=== PATIENT | male | born 1970 | race Caucasian/White ===

== ENCOUNTER → 2016-11-03 | Outpatient (CLI) | payer BC ==
--- NOTE | 2016-11-03 11:58 | US ---
EXAMINATION TYPE: US venous doppler duplex LE BI DATE OF EXAM: 11/03/2016 11:31 AM COMPARISON: NONE CLINICAL HISTORY: 46-year-old male with pain and swelling I82.403. Bilat. leg pain and swelling, no p revious history of. DVT. SIDE PERFORMED: bilateral TECHNIQUE: The bilateral lower extremity deep venous system is examined utilizing real time linear a rray sonography with graded compression, Doppler and color-flow sonography. Findings: VESSELS IMAGED: External Iliac Vein (EIV) Common Femoral Vein Deep Femoral Vein Femoral Vein Popliteal Vein Proximal Calf Veins There is normal flow, compressibility and vascular waveforms bilaterally. Right Leg: Negative for DVT Left Leg: Negative for DVT IMPRESSION: No evidence for DVT within the bilateral lower extremities imaged from the groin to the upper calves.
--- NOTE | 2016-11-03 12:27 | XR ---
EXAMINATION TYPE: XR chest 2V DATE OF EXAM: 11/03/2016 12:02 PM COMPARISON: NONE HISTORY: Cough and shortness of breath, history kidney transplant TECHNIQUE: Frontal and lateral views of the chest are obtained. FINDINGS: There is no focal air space opacity, pleural effusion, or pneumothorax seen. The cardiac silhouette size is within normal limits. There is bronchial wall thickening. The patient is rotated. The osseous structures are intact. IMPRESSION: Correlate for reactive airways disease, bronchitis, follow-up as indicated.
== END ==
LOC: RADUSWWP 10:57
PROVIDERS: ATTEND Family Medicine
DX: R06.00 Dyspnea, unspecified (principal); R05 Cough; Z94.0 Kidney transplant status; I82.403 Acute embolism and thrombosis of unspecified deep veins of lower extremity, bilateral; M79.606 Pain in leg, unspecified
CPT/HCPCS: 71020; 93005; 93970

== ENCOUNTER → 2016-12-16 | Outpatient (CLI) | payer BC, MEDICARE ==
--- NOTE | 2016-12-16 14:37 | CT ---
EXAMINATION TYPE: CT abdomen pelvis wo con DATE OF EXAM: 12/16/2016 2:28 PM COMPARISON: NONE HISTORY: Polycystic Kidney Disease CT DLP: 1234.80 mGycm FINDINGS: LUNG BASES: No evidence for nodule. No evidence for infiltrate. LIVER/GB: The gallbladder is unremarkable. No space-occupying hepatic lesion. PANCREAS: No pancreatic mass identified. No inflammatory process seen. SPLEEN: No evidence for splenomegaly. No intrasplenic lesions seen. ADRENALS: No adrenal nodules identified. No evidence for thickening. KIDNEYS: The kidneys are markedly enlarged bilaterally. Innumerable cysts are seen within both kidney s. Some of these cysts demonstrate high mucinous component and/or hemorrhagic component. See evidence for nephrolithiasis or hydronephrosis. There is a transplanted right pelvic kidney which appears to demonstrate normal morphology. No hydronephrosis of the transplanted kidney or inflammato ry changes seen. BOWEL: Appendix has a normal appearance. No evidence of bowel obstruction. No inflam matory process. Lymph nodes: No evidence for adenopathy greater than 1 cm. Abdominal aorta: Atheromatous changes seen. No evidence for aneurysm. Genital organs: No significant abnormality. Other: No significant abnormality. IMPRESSION: 1. FINDINGS COMPATIBLE WITH AUTOSOMAL DOMINANT POLYCYSTIC KIDNEY DISEASE. 2. TRANSPLANTED KIDNEY HAS A NORMAL MORPHOLOGY.
== END ==
LOC: RADCTMAIN 14:05
PROVIDERS: ATTEND Urology
DX: Q61.2 Polycystic kidney, adult type (principal); Z94.0 Kidney transplant status
CPT/HCPCS: 74176

== ENCOUNTER → 2017-07-14 | Outpatient (CLI) | payer BC, MEDICARE ==
--- NOTE | 2017-07-14 22:25 | CONS ---
CONSULTATION This patient is a 47-year-old gentleman who has been evaluated in the sleep center for possible obstructive sleep apnea-hypopnea syndrome. HISTORY OF PRESENT ILLNESS/SLEEP-WAKE EVALUATION: Patient's usual sleep schedule is from around 9 or 10 p.m. until 6 or 7 a.m. Sometimes he has problem with falling asleep. No TV in bedroom. He sleeps only on the stomach position or side. If he is on his back, he snores and has episodes of stopped breathing during sleep. He wakes up from sleep about 3 times with 1 episode of nocturia. He has a positive history of restless legs and twitching of his legs during the night. In the morning he wakes up tired, has problem with memory. [place] Sleepiness Scale is 8. The patient had a sleep study in 2008. At that time the sleep study was negative. Patient's weight at that time was 240 pounds. His weight has increased since that time by 44 pounds. PAST MEDICAL HISTORY: 1. Polycystic kidney disease, treated with kidney transplant, and after that his own kidneys were removed. 2. Hypothyroidism. 3. Hyperlipidemia. 4. Allergies. 5. Intracranial hypertension. PAST SURGICAL HISTORY: 1. Kidney transplant. 2. Lipoma removed. 3. His own kidney removed. MEDICATIONS: 1. Tacrolimus. 2. CellCept. 3. Prednisone. 4. Synthroid. 5. Zantac. 6. Zoloft. 7. Claritin. 8. Rogaine. SOCIAL HISTORY: Negative for smoking. Alcohol consumption occasional. FAMILY HISTORY: Hypertension, heart problems, stroke, arthritis, narcolepsy, liver problems, diabetes. REVIEW OF SYSTEMS: Awakenings from sleep. PHYSICAL EXAMINATION: Pleasant 47-year-old gentleman without distress. VITAL SIGNS: BP 134/90, HR 84, RR 16, height 5 feet 11-1/4 inches, weight 284.2, BMI 39.3. Neck 19 inches in circumference. Temperature 98.5, oxygen saturation at room air 97%. HEENT: PERRLA, EOMI. Evaluation of oropharynx showed tongue protrudes midline; moderately low, close to normal position of soft palate. Thin, long uvula. NECK: Supple. No JVD. Thyroid is not palpable. Wide neck. LUNGS: Clear to percussion and to auscultation. Good air exchange. No wheezing or rhonchi. HEART: S1, S2. ABDOMEN: Obese. EXTREMITIES: No clubbing or cyanosis. GAMING DIRECTOR: Awake, alert and oriented x3. Cranial nerves 2 to 7 intact. There is no fasciculation or atrophy noted. No focal deficits observed. IMPRESSION: 1. Snoring, possible witnessed episodes of stopped breathing during sleep, especially in the back position, awakenings from sleep, wide neck, obesity; obstructive sleep apnea-hypopnea syndrome. 2. Obesity; body mass index 39.3. 3. History of restless legs syndrome. 4. Periodic limb movements. 5. Polycystic kidney disease, status post kidney transplant, and his own kidneys have been removed. 6. Hypothyroidism. 7. Hyperlipidemia. 8. Allergies. 9. History of intracranial hypertension. 10.Lipoma removed from left shoulder area. PLAN: 1. Polysomnography for evaluation of patient's breathing during sleep. 2. CPAP/BiPAP titration if sleep study confirms obstructive sleep apnea-hypopnea syndrome. 3. Preferable position during sleep on the side. 4. No driving if patient feels any sleepiness. Patient is aware of civil and criminal liability for unsafe driving. 5. I will see patient for follow-up visit to explain results of testing and following plan. Thank you very much for referring this patient for consultation. Sincerely, Theodore Son MD, PhD, FAASM Diplomat of [place] [employer] [place] [employer] [facility] [facility] [place] MMJOSE / DANY: [id number] /
== END | disposition home or self-care (01) ==
LOC: SLEEP 15:32
PROVIDERS: ATTEND Internal Medicine
DX: G47.33 Obstructive sleep apnea (adult) (pediatric) (principal); G47.61 Periodic limb movement disorder; E03.9 Hypothyroidism, unspecified; E78.5 Hyperlipidemia, unspecified; G93.2 Benign intracranial hypertension
CPT/HCPCS: 99211

== ENCOUNTER → 2018-09-15 | Outpatient (CLI) | payer BC, MEDICARE ==
[2018-09-19 01:02] LABS: Beef IgG 12.3 mcg/mL (< 2.0); Chicken Meat IgG <2.0 mcg/mL (< 2.0); Corn IgG 2.3 mcg/mL (< 2.0); Cow's Milk IgG 66.3 mcg/mL (< 2.0); Peanut IgG <2.0 mcg/mL (< 2.0); Pork IgG 4.4 mcg/mL (< 2.0); Potato IgG <2.0 mcg/mL (< 2.0); Soybean IgG <2.0 mcg/mL (< 2.0); Tomato IgG <2.0 mcg/mL (< 2.0); Wheat IgG 2.3 mcg/mL (< 2.0)
== END | disposition home or self-care (01) ==
LOC: LABWHC1 11:49
PROVIDERS: ATTEND Otolaryngology
DX: J30.89 Other allergic rhinitis (principal)
CPT/HCPCS: 36415; 86001

== ENCOUNTER → 2019-10-05 | Outpatient (CLI) | payer BC ==
--- NOTE | 2019-10-06 08:03 | CT ---
EXAMINATION TYPE: CT soft tissue neck wo con DATE OF EXAM: 10/05/2019 COMPARISON: None HISTORY: Sore throat and lump. BB placed on region of interest. CT DLP: [address] of the neck was performed from the skull base through the lung apices. BB is placed ove r the site of clinical concern over the left neck at the level of the left parotid. AIRWAY: The supraglottic, glottic, and subglottic portions of the airway appear patent and free of mass. SALIVARY GLANDS: The submandibular and parotid glands are free of mass or inflammatory process. THYROID GLAND: No nodules or masses seen. LYMPH NODES: No adenopathy seen greater than 1cm. LUNG APICES: No nodule or mass is seen. OTHER: Vascular structures are patent. No significant degenerative change of the cervical spine. N o abscess seen. Mild mucosal thickening left maxillary sinus. IMPRESSION: No distinct abnormality at the site of clinical concern.
== END | disposition home or self-care (01) ==
LOC: RADCTMAIN 16:57
PROVIDERS: ATTEND Otolaryngology
DX: J02.9 Acute pharyngitis, unspecified (principal)
CPT/HCPCS: 70490

== ENCOUNTER → 2021-01-31 | Outpatient (CLI) | payer BC ==
--- NOTE | 2021-02-01 06:44 | US ---
EXAMINATION TYPE: US thyroid st tissue head/neck DATE OF EXAM: 01/31/2021 COMPARISON: CT neck October 05, 2019 CLINICAL HISTORY: R22.1 Left Neck Mass. Posterior left neck palpable x long time per patient. Soft a t touch. Patient states he thinks it has increased in size. Patient states he has been having some neck pain. Area of concern scanned. Hypoechoic nonvascular lesion seen at area of concern= 2.6 x 2.0 x 0.8 cm. Contralateral images taken. As above. Oval hypoechoic avascular structure at the site of palpable abnormality in the deep subcuta neous tissue strongly favors benign etiology. No suspicious lesion identified on neck CT 16 months ea rlier. If lesion continues to enlarge or become focally painful further investigation with repeat con trast-enhanced CT would be warranted. IMPRESSION: As above.
== END | disposition home or self-care (01) ==
LOC: RADUSWWP 16:21
PROVIDERS: ATTEND Family Medicine
DX: R22.1 Localized swelling, mass and lump, neck (principal)
CPT/HCPCS: 76536

== ENCOUNTER → 2021-11-12 | Outpatient (CLI) | payer BC ==
--- NOTE | 2021-11-12 11:15 | MR ---
EXAMINATION TYPE: MR brain/orbits wo/w con, MR venography head wo con DATE OF EXAM: 11/12/2021 COMPARISON: None HISTORY: Papilledema TECHNIQUE: Multiplanar, multisequence images of the brain and brainstem is performed without and with IV contras t, utilizing 12 mL intravenous Gadavist . [id number] imaging obtained through the brain with thre e-dimensional reconstructions performed on an alternate workstation and reviewed. FINDINGS: Diffusion weighted images demonstrate no evidence of a recent infarct or other diffusion ab normality. There is no extra-axial fluid collection. There is some minimal periventricular hyperint ensity present on inversion recovery T2-weighted sequences of questionable clinical significance, pun ctate focus present in the right frontal lobe on axial image 17 measures 5 mm. The ventricular system and cisternal spaces are normal in size and appearance. The brain volume is age appropriate. There is fluid signal present along the optic nerves bilaterally, correlate for papilledema. No evide nt intraorbital mass. Extraocular musculature shows a symmetric appearance. No abnormal enhancement a long the optic nerves. Lenses within the globes show an atypical appearance Midline structures demonstrate normal morphology with a marginally the sella. The craniocervical quiana ction appears within normal limits. Post contrast images demonstrate no abnormal enhancement, probab le developmental venous malformation noted along the right frontal lobe. The dural venous sinuses alejandra ear patent. The visualized sinuses are remarkable for mucosal disease within the ethmoid air cells, f rontal sinus, lobular soft tissue in the maxillary antrum on the left may represent a mucous retentio n cyst and the globes are intact. T2 hyperintensity is present within the temporal bone on the right, mastoid air cells suggesting inflammatory change. The sagittal sinus, cerebral veins, transverse sinus, sigmoid sinus are patent. IMPRESSION: Fluid signal is present along the optic nerves consistent with patient's history correlat e. Mild sinus disease, inflammatory change present within the temporal bone on the right, mastoid air cells. Nonspecific white matter demyelination of questionable clinical significance. No evident cere bral venous thrombosis.
== END | disposition home or self-care (01) ==
LOC: RADMRIMAIN 09:00
PROVIDERS: ATTEND Ophthalmology
DX: H47.10 Unspecified papilledema (principal); J32.9 Chronic sinusitis, unspecified; H70.90 Unspecified mastoiditis, unspecified ear
CPT/HCPCS: 70544; 70543; 70553; A9585

== ENCOUNTER 2021-11-27 09:45 | Day surgery (SDC) | payer BC ==
[2021-11-26 10:15] VITALS: BMI 34.2
[~2021-11-27 09:45] MED LIST: LACTATED RINGERS 1,000 ML IV SCH
[2021-11-27 10:33] VITALS: RESP 16; TEMP 98
[2021-11-27 10:37] LABS: Glucose,Whole Blood 127 mg/dL (75-99)
--- NOTE | 2021-11-27 11:03 | P.PCN ---
Date of Procedure: 11/27/21 Description of Procedure: Procedure: 1. Diagnostic Lumbar puncture for CSF collection PREOPERATIVE DIAGNOSIS: Papilledema POSTOPERATIVE DIAGNOSIS: Papilledema SURGEON: Tracy Edwards ANESTHESIA: Local with 1% lidocaine, and IV sedation : None EBL: None. 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 Consulted for lumbar puncture for CSF collection send it for analysis. PROCEDURE DESCRIPTION: The patient was seen and identified. Risks, benefits, complications, and alternatives were discussed with the patient. The patient agreed to proceed with the procedure and signed the consent, and vital signs were stable. Patient was taken to the procedure area, and time out was completed. The patient was placed in left lateral position on procedure. . The lumbosacral area was prepped and draped in the usual sterile fashion. Critical pause was taken. Vital signs were closely monitored during the procedure. Posterior superior iliac crest landmarks was identified . The midline lumbar space also identified. Approximately at the level of L4-L5 interspinous space, skin and deeper tissues were localized with 5 mL of 1% lidocaine. Using a 22 gauge 3.5 spinal needle entered into subarachnoid space, with 1 attempt. Clear CSF came out of the spinal needle. 3 mL of CSF fluid collected in each tube 4. Needle was withdrawn intact, skin was cleansed, and bandages were applied. Opening CSF pressure: 29 cm Closing CSF pressure: 14.5 cm COMPLICATIONS: None. DISPOSITION / PLANS: The patient was placed in a supine position and transferred to the recovery area in a stable condition for observation. Patient was discharged from the recovery room after meeting discharge criteria. Home discharge instructions given to the patient by the staff. The patient was reexamined prior to discharge.
[2021-11-27 11:29] VITALS: BP 120/80; PULSE 65
[2021-11-27 16:15] LABS: Glucose,CSF 93 mg/dL (40-70); Total Protein,CSF 86 mg/dL (12-60)
[2021-11-27 16:30] LABS: Appearance,CSF Clear; CSF Tube Number 4; CSF Tube Volume 3; Nucleated Cells, CSF 3 u/L (0-5); Red Blood Cell,CSF 23 u/L (0-10)
[2021-11-27 16:36] LABS: Red Blood Cell, CSF Crenated 9 %; Red Blood Cell, CSF Fresh 91 %
== END 2021-11-27 11:55 | disposition home or self-care (01) ==
LOC: ORPAIN 09:45
DX: H47.10 Unspecified papilledema (principal)
CPT/HCPCS: 62270; 82945; 84157; 88108; 89050

== ENCOUNTER → 2022-11-04 | Outpatient (CLI) | payer BC ==
--- NOTE | 2022-11-04 11:07 | XR ---
EXAMINATION TYPE: XR chest 2V DATE OF EXAM: 11/04/2022 COMPARISON: Chest x-ray November 03, 2016 HISTORY: Shortness of breath on exertion. Tachycardia. TECHNIQUE: Frontal and lateral views of the chest are obtained. FINDINGS: There is no focal air space opacity, pleural effusion, or pneumothorax seen. The cardiac silhouette size is stable and within normal limits. Slightly prominent aortic knob is redemonstrated. The osseous structures are intact. IMPRESSION: No acute cardiopulmonary process.
== END | disposition home or self-care (01) ==
LOC: RADXRMAIN 10:32
PROVIDERS: ATTEND Internal Medicine Nephrology
DX: J81.0 Acute pulmonary edema (principal); I50.9 Heart failure, unspecified; E83.42 Hypomagnesemia; R25.2 Cramp and spasm; Z94.0 Kidney transplant status
CPT/HCPCS: 71046; 83735

== ENCOUNTER → 2022-11-27 | Outpatient (CLI) | payer BC ==
--- NOTE | 2022-11-28 10:09 | CA ---
Transthoracic Echo Report Name: Luke Lopez Age: 52 Gender: M : 1970 Exam Date: 11/27/2022 13:02 Exam Location: [facility] Ht (in): 73 Wt (lb): 235 Ordering Physician: Levar Mena MD Attending/Referring Phys: Business Analytics Director Mirian Quintanilla RDCS Procedure CPT: Indications: i50.9 Cardiac Hx: Technical Quality: Fair Contrast 1: Total Dose (mL): Contrast 2: Total Dose (mL): MEASUREMENTS (Male / Female) Normal Values 2D ECHO LV Diastolic Diameter PLAX 3.9 cm 4.2 - 5.9 / 3.9 - 5.3 cm LV Systolic Diameter PLAX 2.6 cm IVS Diastolic Thickness 1.5 cm 0.6 - 1.0 / 0.6 - 0.9 cm LVPW Diastolic Thickness 1.5 cm 0.6 - 1.0 / 0.6 - 0.9 cm LV Relative Wall Thickness 0.8 RV Internal Dim ED PLAX 4.6 cm LA Volume 114.2 cm??? 18 - 58 / 22 - 52 cm??? M-MODE Aortic Root Diameter MM 4.3 cm LA Systolic Diameter MM 4.0 cm LA Ao Ratio MM 0.9 AV Cusp Separation MM 2.8 cm DOPPLER AV Peak Velocity 132.3 cm/s AV Peak Gradient 7.0 mmHg AV Mean Velocity 96.7 cm/s AV Mean Gradient 4.0 mmHg AV Velocity Time Integral 27.2 cm LVOT Peak Velocity 123.6 cm/s LVOT Peak Gradient 6.1 mmHg LVOT Velocity Time Integral 29.0 cm MV Area PHT 2.8 cm??? Mitral E Point Velocity 103.5 cm/s Mitral A Point Velocity 76.7 cm/s Mitral E to A Ratio 1.4 MV Deceleration Time 270.8 ms MV E' Velocity 10.5 cm/s Mitral E to MV E' Ratio 9.9 TR Peak Velocity 271.1 cm/s TR Peak Gradient 29.4 mmHg Right Ventricular Systolic Press 33.3 mmHg FINDINGS Left Ventricle Moderately increased left ventricular wall thickness. Left ventricular cavity size normal. Normal left ventricular systolic function with no obvious regional wall motion abnormalities. Left ventricular ejection fraction is estimated at 55-60 %. Right Ventricle Moderate right ventricular dilatation. Right ventricular systolic pressure within normal limits. Right Atrium Normal right atrial size. Left Atrium Severely increased left atrial volume. Mildly increased left atrial area. Mitral Valve Structurally normal mitral valve. Mitral annular calcification. Moderate mitral regurgitation. Aortic Valve No aortic valve stenosis or regurgitation. Tricuspid Valve Structurally normal tricuspid valve. Mild tricuspid regurgitation. Pulmonic Valve Structurally normal pulmonic valve. Pericardium No pericardial effusion. Aorta Normal size aortic root and proximal ascending aorta. CONCLUSIONS Moderate increased left ventricular wall thickness Left ventricular ejection fraction 55-60% Moderate left atrial dilation Moderate mitral regurgitation Mild tricuspid regurgitation Previewed by: Dr. Myron Saldana DO (Electronically Signed) Final Date: 28 November 2022 10:08
== END | disposition home or self-care (01) ==
LOC: RADECHMAIN 12:56
PROVIDERS: ATTEND Internal Medicine Nephrology
DX: I08.1 Rheumatic disorders of both mitral and tricuspid valves (principal); I50.9 Heart failure, unspecified
CPT/HCPCS: 93306

== ENCOUNTER 2023-10-29 00:32 | Inpatient (IN) | payer BC ==
--- NOTE | 2023-10-29 01:12 | ED ---
Abdominal Pain HPI - General Chief Complaint: Abdominal Pain Stated Complaint: abd pain Time Seen by Provider: 10/29/23 00:39 Source: patient, family, RN notes reviewed, old records reviewed Mode of arrival: ambulatory Limitations: no limitations - History of Present Illness Initial Comments: This is a 53-year-old male to the ER for evaluation abdominal pain severe abdominal pain left-sided abdominal pain. Patient has persistent nausea without vomiting since significant nausea without vomiting with history of diverticulitis and this feels similar. MD Complaint: abdominal pain (Severe abdominal pain left lower quadrant abd ominal pain) -: days(s) Location: LLQ Radiation: LLQ Migration to: LLQ Severity: moderate Severity scale (1-10): 7 Quality: sharp Consistency: constant Improves With: nothing Worsens With: nothing Associated Symptoms: nausea, vomiting, diarrhea, constipation Treatments Prior to Arrival: other - Related Data Home Medications Medication Instructions Recorded Confirmed Atorvastatin [Lipitor] 40 mg PO HS 11/26/21 10/29/23 Azelastine HCl [Astepro] 2 spray NASAL DAILY 11/26/21 10/29/23 Calcium Acetate [Phoslo] 1,334 mg PO TID-W/MEALS 11/26/21 10/29/23 Calcium Carbonate [Tums] 2,000 mg PO QAM 11/26/21 10/29/23 Famotidine [Pepcid] 20 mg PO HS 11/26/21 10/29/23 Fluticasone Propionate [Flonase 2 spray EA NOSTRIL DAILY 11/26/21 10/29/23 Allergy Relief] Folic Acid 0.4 mg PO BID 11/26/21 10/29/23 Hydrocortisone [Cortef] 10 mg PO BID 11/26/21 10/29/23 Hyoscyamine Sulfate [Levsin] 0.125 mg PO TID-W/MEALS 11/26/21 10/29/23 Levothyroxine Sodium [Synthroid] 75 mcg PO QAM 11/26/21 10/29/23 Loperamide HCl [Imodium A-D] 2 mg PO DAILY 11/26/21 10/29/23 Loratadine [Claritin] 10 mg PO DAILY 11/26/21 10/29/23 Magnesium Oxide [Mag-Ox] 400 mg PO QAM 11/26/21 10/29/23 Montelukast Sodium [Singulair] 10 mg PO DAILY 11/26/21 10/29/23 Multivitamins, Thera [Multivitamin 1 tab PO QAM 11/26/21 10/29/23 (formulary)] [place]-3 Fatty Acids/Fish Oil [Fish 1 cap PO BID 11/26/21 10/29/23 Oil 1,000 mg Softgel] Tacrolimus [Prograf] 3 mg PO Q12H 11/26/21 10/29/23 Vitamin E (Dl,Tocopheryl Acet) 400 unit PO QAM 11/26/21 10/29/23 [Vitamin E (400 Iu = 180 mg)] acetaZOLAMIDE [Diamox] 500 mg PO BID 11/26/21 10/29/23 allopurinoL [Zyloprim] 200 mg PO DAILY 11/26/21 10/29/23 calcitrioL 0.25 mcg PO BID 11/26/21 10/29/23 minoxidiL [Rogaine] 1 applic TOPICAL BID 11/26/21 10/29/23 mycophenolate mofetiL [Cellcept] 750 mg PO BID 11/26/21 10/29/23 Midodrine [ProAmatine] 10 mg PO TID 10/29/23 10/29/23 Sertraline [Zoloft] 150 mg PO HS 10/29/23 10/29/23 Allergies Allergy/AdvReac Type Severity Reaction Status Date / Time doxycycline AdvReac Nausea & Verified 10/29/23 07:43 Vomiting & Diarrhea Review of Systems ROS Statement: Those systems with pertinent positive or pertinent negative responses have been documented in the HPI. ROS Other: All systems not noted in ROS Statement are negative. Past Medical History Past Medical History: Chest Pain / Angina, Diabetes Mellitus, Hyperlipidemia, Hypertension, Osteoarthritis (OA), Sleep Apnea/CPAP/BIPAP, Thyroid Disorder Additional Past Medical History / Comment(s): Seasonal Allergies. No treatment needed for Diabetes, just watching levels. Hypertension resolved after kidney transplant. CPAP use. History of Any Multi-Drug Resistant Organisms: None Reported Past Surgical History: Orthopedic Surgery Additional Past Surgical History / Comment(s): Bilateral Neprectomy, right kidney transplant 04/2016, parathyroidectomy, colonoscopy, liopma removed from left posterior shoulder, left knee arthroscopy, lumbar puncture, bilateral optic sheath surgery, bilateral cataracts removed, lipoma removed from left posterior neck. Past Anesthesia/Blood Transfusion Reactions: Motion Sickness, Postoperative N ausea & Vomiting (PONV) Past Psychological History: Anxiety Smoking Status: Never smoker Past Alcohol Use History: Occasional Past Drug Use History: None Reported - Past Family History Mother Family Medical History: No Reported History General Exam Limitations: no limitations General appearance: alert, in no apparent distress, anxious Head exam: Present: atraumatic, normocephalic, normal inspection Eye exam: Present: normal appearance, PERRL, EOMI. Absent: scleral icterus, conjunctival injection, periorbital swelling ENT exam: Present: normal exam, mucous membranes moist Neck exam: Present: normal inspection. Absent: tenderness, meningismus, lymphadenopathy Respiratory exam: Present: normal lung sounds bilaterally. Absent: respiratory distress, wheezes, rales, rhonchi, stridor Cardiovascular Exam: Present: regular rate, normal rhythm, normal heart sounds. Absent: systolic murmur, diastolic murmur, rubs, gallop, clicks GI/Abdominal exam: Present: tenderness, guarding, normal bowel sounds. Absent: distended, rebound, rigid Extremities exam: Present: normal inspection, full ROM, normal capillary refill. Absent: tenderness, pedal edema, joint swelling, calf tenderness Back exam: Present: normal inspection Neurological exam: Present: alert, oriented X3, CN II-XII intact Psychiatric exam: Present: normal affect, normal mood Skin exam: Present: warm, dry, intact, normal color. Absent: rash Course Vital Signs 10/29/23 10/29/23 10/29/23 00:34 03:04 03:56 Temperature 98.2 F Pulse Rate 80 76 89 Respiratory 20 18 18 Rate Blood Pressure 131/81 126/74 105/79 O2 Sat by Pulse 97 99 98 Oximetry 10/29/23 10/29/23 10/29/23 04:57 06:29 08:39 Temperature Pulse Rate 100 100 99 Respiratory 16 18 18 Rate Blood Pressure 114/92 97/57 87/64 O2 Sat by Pulse 94 L 98 97 Oximetry 10/29/23 10/29/23 10/29/23 10:18 12:03 13:00 Temperature 100 F H 100 F H Pulse Rate 86 93 65 Respiratory 20 18 18 Rate Blood Pressure 100/66 102/61 90/59 O2 Sat by Pulse 96 95 95 Oximetry - Reevaluation(s) Reevaluation #1: 10/29/23 01:44 Medical records reviewed Reevaluation #2: 10/29/23 01:44 Patient symptoms are improved Reevaluation #3: 10/29/23 04:04 Patient informed of results and questions answered Reevaluation #4: Was pt. sent in by a medical professional or institution ([facility], STAFFING CONSULTANT, urgent care, hospital, or half-way...) When possible be specific @ -no Did you speak to anyone other than the patient for history (EMS, parent, family, police, friend...)? What history was obtained from this source @ -no Did you review nursing and triage notes (agree or disagree)? Why? @ -agree Are old charts reviewed (outside hosp., previous admission, EMS record, old EKG, old radiological studies, urgent care reports/EKG's, half-way records)? Report findings @ -yes Differential Diagnosis (chest pain, altered mental status, abdominal pain women, abdominal pain men, vaginal bleeding, weakness, fever, dyspnea, syncope, he adache, dizziness, GI bleed, back pain, seizure, CVA, palpatations, mental health, musculoskeletal)? @ -prior EKG interpreted by me (3pts min.). @ -no X-rays interpreted by me (1pt min.). @ -no CT interpreted by me (1pt min.). @ -Yes positive for acute diverticulitis U/S interpreted by me (1pt. min.). @ -no What testing was considered but not performed or refused? (CT, X-rays, U/S, labs)? Why? @ -none What meds were considered but not given or refused? Why? @ -none Did you discuss the management of the patient with other professionals (professionals i.e. [facility], STAFFING CONSULTANT, lab, RT, psych nurse, social worker delinquency prevention, vp integrity, teacher, chief growth officer, case filler)? Give summary @ -no Was smoking cessation discussed for >3mins.? @ -no Was critical care preformed (if so, how long)? @ -no Were there social determinants of health that impacted care today? How? (Homelessness, low income, unemployed, alcoholism, drug addiction, transportation, low edu. Level, literacy, decrease access to med. care, long-term, rehab)? @ -none Was there de-escalation of care discussed even if they declined (Discuss DNR or withdrawal of care, Hospice)? DNR status @ -no What co-morbidities impacted this encounter? (DM, HTN, Smoking, COPD, CAD, Cancer, CVA, ARF, Chemo, Hep., AIDS, mental health diagnosis, sleep apnea, morbid obesity)? @ -none Was patient admitted / discharged? Hospital course, mention meds given and route, prescriptions, significant lab abnormalities, going to OR and other pertinent info. @ - 53 Female to the emergency room today with severe abdominal pain. Patient has complicated but severe diverticulitis and will admit for n.p.o. status and IV antibiotics Admitted Undiagnosed new problem with uncertain prognosis? @ -no Drug Therapy requiring intensive monitoring for toxicity (Heparin, Nitro, Insulin, Cardizem)? @ -no Were any procedures done? @ -no Diagnosis/symptom? @ -Acute complicated diverticulitis significant Acute, or Chronic, or Acute on Chronic? @ -Acute Uncomplicated (without systemic symptoms) or Complicated (systemic symptoms)? @ -Complicated Side effects of treatment? @ -no Exacerbation, Progression, or Severe Exacerbation? @ -exacerbation Poses a threat to life or bodily function? How? (Chest pain, USA, SC, pneumonia, PE, COPD, DKA, ARF, appy, cholecystitis, CVA, Diverticulitis, Homicidal, Suicidal, threat to staff... and all critical care pts) @ -yes with significant infection Reevaluation #5: Differential Abdominal Pain Men: Appendicitis, cholecystitis, diverticulosis, ischemic bowel, pancreatitis, hepatitis, UTI, gastroenteritis, AAA, incarcerated hernia, bowel obstruction, constipation, inflammatory bowel, hepatitis, peptic ulcer disease, splenic infarction, perforated viscus, testicular torsion, this is not meant to be an all-inclusive list - Consultations Consultation #1: Spoke with [facility] who agrees to admit this patient Medical Decision Making - Medical Decision Making 53 Female to the emergency room today with severe abdominal pain. Patient has uncomplicated but severe diverticulitis and will admit for n.p.o. status and IV antibiotics - Lab Data Result diagrams: 11/04/23 06:02 11/04/23 06:02 Lab Results 10/29/23 10/29/23 10/29/23 Range/Units 01:24 01:24 03:11 WBC 15.1 H (3.8-10.6) k/uL RBC 4.46 (4.30-5.90) m/uL Hgb 13.2 (13.0-17.5) gm/dL Hct 40.4 (39.0-53.0) % MCV 90.4 (80.0-100.0) fL MCH 29.6 (25.0-35.0) pg MCHC 32.7 (31.0-37.0) g/dL RDW 13.6 (11.5-15.5) % Plt Count 172 (150-450) k/uL MPV 7.8 Neutrophils % 92 % Lymphocytes % 4 % Monocytes % 4 % Eosinophils % 0 % Basophils % 0 % Neutrophils # 13.9 H (1.3-7.7) k/uL Lymphocytes # 0.5 L (1.0-4.8) k/uL Monocytes # 0.6 (0-1.0) k/uL Eosinophils # 0.0 (0-0.7) k/uL Basophils # 0.0 (0-0.2) k/uL Sodium 138 (137-145) mmol/L Potassium 3.9 (3.5-5.1) mmol/L Chloride 108 H (98-107) mmol/L Carbon Dioxide 16 L (22-30) mmol/L Anion Gap 14 mmol/L BUN 30 H (9-20) mg/dL Creatinine 1.63 H (0.66-1.25) mg/dL Est GFR (CKD-EPI)AfAm 55 (>60 ml/min/1.73 sqM) Est GFR (CKD-EPI)NonAf 48 (>60 ml/min/1.73 sqM) Glucose 150 H (74-99) mg/dL Plasma Lactic Acid [place] 1.2 (0.7-2.0) mmol/L Calcium 7.7 L (8.4-10.2) mg/dL Phosphorus 4.1 (2.5-4.5) mg/dL Magnesium 1.4 L (1.6-2.3) mg/dL Total Bilirubin 0.8 (0.2-1.3) mg/dL AST 22 (17-59) U/L ALT 15 (4-49) U/L Alkaline Phosphatase 59 (38-126) U/L Total Protein 6.6 (6.3-8.2) g/dL Albumin 4.4 (3.5-5.0) g/dL Amylase 52 (30-110) U/L Lipase 87 (23-300) U/L - Radiology Data Radiology results: report reviewed (CT of the abdomen pelvis is positive for significant severe diverticulitis), image reviewed Disposition Clinical Impression: Abdominal pain, Diverticulitis, Diverticulitis of large intestine with complication, Abdominal colic Disposition: ADMITTED IP TO THIS [facility] Condition: Serious Is patient prescribed a controlled substance at d/c from ED?: No Time of Disposition: 04:00
[2023-10-29] MEDS: PROCHLORPERAZINE INJ 10 MG/2 ML VIAL IVP STA (01:16)
[2023-10-29] MEDS: HYDROmorphone 1 MG/ML 1 ML SYRINGE IVP STA ×2 (01:17→04:04)
[2023-10-29] MEDS: SODIUM CHLORIDE 0.9% 1,000 ML IV STA ×2 (01:17→04:03)
[2023-10-29] MEDS: SODIUM CHLORIDE 0.9% 500 ML 500 ML IV STA (01:22)
[2023-10-29] MEDS: PANTOPRAZOLE 40 MG/10 ML VIAL IVP STA (01:31)
[2023-10-29] MEDS: ONDANSETRON 4 MG/2 ML VIAL IVP STA (01:31)
[2023-10-29] MEDS: MORPHINE SULFATE 4 MG/ML SYRINGE IVP STA (01:32)
[2023-10-29 02:14] LABS: ALT 15 U/L (4-49); AST 22 U/L (17-59); African American GFR (CKD) 55 (>60 ml/min/1.73 sqM); Albumin 4.4 g/dL (3.5-5.0); Alkaline Phosphatase 59 U/L (38-126); Amylase 52 U/L (30-110); Anion Gap 14 mmol/L; Blood Urea Nitrogen 30 mg/dL (9-20); Calcium 7.7 mg/dL (8.4-10.2); Carbon Dioxide 16 mmol/L (22-30); Chloride 108 mmol/L (98-107); Glucose 150 mg/dL (74-99); Lipase 87 U/L (23-300); Magnesium 1.4 mg/dL (1.6-2.3); Non-African American GFR(CKD) 48 (>60 ml/min/1.73 sqM); Phosphorus 4.1 mg/dL (2.5-4.5); Potassium 3.9 mmol/L (3.5-5.1); Sodium 138 mmol/L (137-145); Total Bilirubin 0.8 mg/dL (0.2-1.3); Total Protein 6.6 g/dL (6.3-8.2)
--- NOTE | 2023-10-29 03:04 | CT ---
EXAMINATION TYPE: CT abdomen pelvis wo con DATE OF EXAM: 10/29/2023 HISTORY: pt here for "diverticulitis flare up", pt complains of LLQ pain. HX of right kidney transpla nt 2016 CT DLP: 1217.9 mGycm. Automated Exposure Control for Dose Reduction was Utilized. TECHNIQUE: CT scan of the abdomen and pelvis is performed without oral or IV contrast. COMPARISON: Prior CT December 16, 2016 FINDINGS: Within the limitations of a non-contrast study, the following observations are made. LUNG BASES: No significant abnormality is appreciated. LIVER/GB: No significant abnormality is appreciated. PANCREAS: No significant abnormality is seen. SPLEEN: No significant abnormality is seen. ADRENALS: No significant abnormality is seen. KIDNEYS: Interval resection of bilateral polycystic kidneys. There is new right pelvic renal transpla nt anteriorly BOWEL: Diverticula throughout the colon greatest involving left and sigmoid colon. Moderate to severe ill-defined fluid and fat stranding in the left lower quadrant and upper pelvis at site of the proxi mal sigmoid colon. No well-formed fluid collection or drainable abscess. No free air. GENITAL ORGANS: Mildly enlarged prostate gland consistent with BPH. LYMPH NODES: No greater than 1cm abdominal or pelvic lymph nodes are appreciated. OSSEOUS STRUCTURES: Grade 1 anterolisthesis L4 on L5 is now present. Moderate to severe disc space na rrowing L4-L5 and L5-S1 levels is now present. Multilevel vacuum disc phenomenon and endplate scleros is is seen. OTHER: No significant additional abnormality is seen. IMPRESSION: CT findings consistent with a fairly severe but uncomplicated acute diverticulitis in the proximal sigmoid colon are noted as detailed above.
[2023-10-29 03:45] LABS: Basophils % (A) 0 %; Eosinophils % (A) 0 %; HCT 40.4 % (39.0-53.0); HGB 13.2 gm/dL (13.0-17.5); Lymphocytes # (A) 0.5 k/uL (1.0-4.8); Lymphocytes % (A) 4 %; MCH 29.6 pg (25.0-35.0); MCHC 32.7 g/dL (31.0-37.0); MCV 90.4 fL (80.0-100.0); Mean Platelet Volume 7.8; Monocytes # (A) 0.6 k/uL (0-1.0); Monocytes % (A) 4 %; Neutrophils # (A) 13.9 k/uL (1.3-7.7); Neutrophils % (A) 92 %; Platelet Count 172 k/uL (150-450); RBC 4.46 m/uL (4.30-5.90); RDW 13.6 % (11.5-15.5); WBC 15.1 k/uL (3.8-10.6)
[2023-10-29] MEDS ORDERED: ONDANSETRON 4 MG/2 ML VIAL IVP PRN (03:53)
[2023-10-29] MEDS ORDERED: NALOXONE 0.4 MG/ML 1 ML VIAL IV PRN (03:53)
[2023-10-29] MEDS: AMPICILLIN-SULBACTAM 3 GM in SODIUM CHLORIDE 0.9% 100 ML IVPB STA (04:07)
[2023-10-29] MEDS: SODIUM CHLORIDE 0.9% 1,000 ML IV SCH (05:28)
[2023-10-29] MEDS: AMPICILLIN-SULBACTAM 3 GM in SODIUM CHLORIDE 0.9% 100 ML IVPB SCH (06:01)
[2023-10-29] MEDS: SODIUM CHLORIDE 0.9% 1,000 ML IV ONE (10:15)
[2023-10-29] MEDS: ACETAMINOPHEN TAB 500 MG TAB PO PRN (11:13)
[2023-10-29] MEDS ORDERED: MAGNESIUM SULFATE-D5W PMX 1 GM in DEXTROSE/WATER 1 100ML.BAG IVPB ONE (11:25)
--- NOTE | 2023-10-29 11:26 | P.GSCN ---
History of Present Illness Consult date: 10/29/23 History of present illness: CHIEF COMPLAINT: Abdominal pain HISTORY OF PRESENT ILLNESS: This is a 53-year-old male with a known history of diverticulitis. He reports he was first diagnosed with diverticulitis in 1995. But since then he had a break in how often he was having diverticulitis. But recently it has been almost every 6 months that he has a flareup and requires antibiotics. This is his third flareup since April. This is his first hospitalization for diverticulitis. Last colonoscopy was a year ago and he reports that reported extensive diverticulosis. Patient does have a history of kidney transplant and bilateral nephrectomy for polycystic kidney disease. Patient reports that yesterday after lunch he had severe left lower quadrant abdominal pain. He was rating the pain about a 10 out of 10. He came into the ER CAT scan was completed of the abdomen pelvis showing evidence of severe diverticulitis. He evidence of leukocytosis. Patient also had a low-grade temp of 100 and hypotensive. Patient complains of feeling dry, thirsty and dark urine. He did report episode of vomiting this morning after pain medicine. PAST MEDICAL HISTORY: Chest Pain / Angina, Diabetes Mellitus, Hyperlipidemia, Hypertension, Osteoarthritis (OA), Sleep Apnea/CPAP/BIPAP, Thyroid Disorder, Seasonal Allergies. No treatment needed for Diabetes, just watching levels. Hypertension resolved after kidney transplant. CPAP use. PAST SURGICAL HISTORY: Bilateral Neprectomy, right kidney transplant 04/2016, parathyroidectomy, colono scopy, liopma removed from left posterior shoulder, left knee arthroscopy, lumbar puncture, bilateral optic sheath surgery, bilateral cataracts removed, lipoma removed from left posterior neck. MEDICATIONS: See below ALLERGIES: See below SOCIAL HISTORY: No illicit drug use. REVIEW OF SYSTEMS: CONSTITUTIONAL: Denies fever or chills. HEENT: Denies blurred vision, vision changes, or eye pain. Denies hemoptysis CARDIOVASCULAR: Denies chest pain or pressure. RESPIRATORY: No shortness of breath. GASTROINTESTINAL: See HPI for pertinent findings HEMATOLOGIC: Denies bleeding disorders. GENITOURINARY: Denies any blood in urine or increased urinary frequency. SKIN: Denies pruitis. Denies rash. PHYSICAL EXAM: VITAL SIGNS: Reviewed GENERAL: Well-developed in no acute distress. HEENT: No sclera icterus. Extraocular movements grossly intact. Moist buccal mucosa. Head is atraumatic, normocephalic. No nasal drainage. ABDOMEN: Soft. Nondistended. Tenderness with palpation to the left lower quadrant NEUROLOGIC: Alert and oriented. Cranial nerves II through XII grossly intact. LABORATORY DATA: WBC 15.1 Hgb 13.2 platelets 172 Sodium is 138 potassium 3.9 creatinine is 1.63 Lactic acid 1.2 Magnesium is 1.4 LFTs normal lipase 86 IMAGING: CT scan abdomen pelvis reports findings consistent with a fairly severe but uncomplicated acute diverticulitis in the proximal sigmoid colon ASSESSMENT: 1. Severe acute sigmoid diverticulitis 2. Prior history of diverticulitis 3. Hypomagnesemia PLAN: -Keep patient n.p.o. -Continue IV antibiotics -1 liter fluid bolus given for hypotension -Continue IV fluids -Repeat CBC in a.m. -Continue pain management Thank you for this consultation Physician Child Nurse note has been reviewed by physician. Signing provider agrees with the documented findings, assessment, and plan of care. Past Medical History Past Medical History: Chest Pain / Angina, Diabetes Mellitus, Hyperlipidemia, Hypertension, Osteoarthritis (OA), Sleep Apnea/CPAP/BIPAP, Thyroid Disorder Additional Past Medical History / Comment(s): Seasonal Allergies. No treatment needed for Diabetes, just watching levels. Hypertension resolved after kidney transplant. CPAP use. History of Any Multi-Drug Resistant Organisms: None Reported Past Surgical History: Orthopedic Surgery Additional Past Surgical History / Comment(s): Bilateral Neprectomy, right kidney transplant 04/2016, parathyroidectomy, colonoscopy, liopma removed from le ft posterior shoulder, left knee arthroscopy, lumbar puncture, bilateral optic sheath surgery, bilateral cataracts removed, lipoma removed from left posterior neck. Past Anesthesia/Blood Transfusion Reactions: Motion Sickness, Postoperative Nausea & Vomiting (PONV) Past Psychological History: Anxiety Smoking Status: Never smoker Past Alcohol Use History: Occasional Past Drug Use History: None Reported - Past Family History Mother Family Medical History: No Reported History Medications and Allergies Home Medications Medication Instructions Recorded Confirmed Type Atorvastatin [Lipitor] 40 mg PO HS 11/26/21 10/29/23 History Azelastine HCl [Astepro] 2 spray NASAL DAILY 11/26/21 10/29/23 History Calcium Acetate [Phoslo] 1,334 mg PO TID-W/MEALS 11/26/21 10/29/23 History Calcium Carbonate [Tums] 2,000 mg PO QAM 11/26/21 10/29/23 History Famotidine [Pepcid] 20 mg PO HS 11/26/21 10/29/23 History Fluticasone Propionate [Flonase 2 spray EA NOSTRIL DAILY 11/26/21 10/29/23 History Allergy Relief] Folic Acid 0.4 mg PO BID 11/26/21 10/29/23 History Hydrocortisone [Cortef] 10 mg PO BID 11/26/21 10/29/23 History Hyoscyamine Sulfate [Levsin] 0.125 mg PO TID-W/MEALS 11/26/21 10/29/23 History Levothyroxine Sodium [Synthroid] 75 mcg PO QAM 11/26/21 10/29/23 History Loperamide HCl [Imodium A-D] 2 mg PO DAILY 11/26/21 10/29/23 History Loratadine [Claritin] 10 mg PO DAILY 11/26/21 10/29/23 History Magnesium Oxide [Mag-Ox] 400 mg PO QAM 11/26/21 10/29/23 History Montelukast Sodium [Singulair] 10 mg PO DAILY 11/26/21 10/29/23 History Multivitamins, Thera [Multivitamin 1 tab PO QAM 11/26/21 10/29/23 History (formulary)] [place]-3 Fatty Acids/Fish Oil [Fish 1 cap PO BID 11/26/21 10/29/23 History Oil 1,000 mg Softgel] Tacrolimus [Prograf] 3 mg PO Q12H 11/26/21 10/29/23 History Vitamin E (Dl,Tocopheryl Acet) 400 unit PO QAM 11/26/21 10/29/23 History [Vitamin E (400 Iu = 180 mg)] acetaZOLAMIDE [Diamox] 500 mg PO BID 11/26/21 10/29/23 History allopurinoL [Zyloprim] 200 mg PO DAILY 11/26/21 10/29/23 History calcitrioL 0.25 mcg PO BID 11/26/21 10/29/23 History minoxidiL [Rogaine] 1 applic TOPICAL BID 11/26/21 10/29/23 History mycophenolate mofetiL [Cellcept] 750 mg PO BID 11/26/21 10/29/23 History Midodrine [ProAmatine] 10 mg PO TID 10/29/23 10/29/23 History Sertraline [Zoloft] 150 mg PO HS 10/29/23 10/29/23 History Allergies Allergy/AdvReac Type Severity Reaction Status Date / Time doxycycline AdvReac Nausea & Verified 10/29/23 07:43 Vomiting & Diarrhea Surgical - Exam Vital Signs Temp Pulse Resp BP Pulse Ox 98.2 F 80 20 131/81 97 10/29/23 00:34 10/29/23 00:34 10/29/23 00:34 10/29/23 00:34 10/29/23 00:34 Results - Labs 10/29/23 03:11 10/29/23 01:24 Abnormal Lab Results - Last 24 Hours (Table) 10/29/23 10/29/23 Range/Units 01:24 03:11 WBC 15.1 H (3.8-10.6) k/uL Neutrophils # 13.9 H (1.3-7.7) k/uL Lymphocytes # 0.5 L (1.0-4.8) k/uL Chloride 108 H (98-107) mmol/L Carbon Dioxide 16 L (22-30) mmol/L BUN 30 H (9-20) mg/dL Creatinine 1.63 H (0.66-1.25) mg/dL Glucose 150 H (74-99) mg/dL Calcium 7.7 L (8.4-10.2) mg/dL Magnesium 1.4 L (1.6-2.3) mg/dL Diabetes panel 10/29/23 Range/Units 01:24 Sodium 138 (137-145) mmol/L Potassium 3.9 (3.5-5.1) mmol/L Chloride 108 H (98-107) mmol/L Carbon Dioxide 16 L (22-30) mmol/L BUN 30 H (9-20) mg/dL Creatinine 1.63 H (0.66-1.25) mg/dL Glucose 150 H (74-99) mg/dL Calcium 7.7 L (8.4-10.2) mg/dL AST 22 (17-59) U/L ALT 15 (4-49) U/L Alkaline Phosphatase 59 (38-126) U/L Total Protein 6.6 (6.3-8.2) g/dL Albumin 4.4 (3.5-5.0) g/dL Calcium panel 10/29/23 Range/Units 01:24 Calcium 7.7 L (8.4-10.2) mg/dL Phosphorus 4.1 (2.5-4.5) mg/dL Albumin 4.4 (3.5-5.0) g/dL Pituitary panel 10/29/23 Range/Units 01:24 Sodium 138 (137-145) mmol/L Potassium 3.9 (3.5-5.1) mmol/L Chloride 108 H (98-107) mmol/L Carbon Dioxide 16 L (22-30) mmol/L BUN 30 H (9-20) mg/dL Creatinine 1.63 H (0.66-1.25) mg/dL Glucose 150 H (74-99) mg/dL Calcium 7.7 L (8.4-10.2) mg/dL Adrenal panel 10/29/23 Range/Units 01:24 Sodium 138 (137-145) mmol/L Potassium 3.9 (3.5-5.1) mmol/L Chloride 108 H (98-107) mmol/L Carbon Dioxide 16 L (22-30) mmol/L BUN 30 H (9-20) mg/dL Creatinine 1.63 H (0.66-1.25) mg/dL Glucose 150 H (74-99) mg/dL Calcium 7.7 L (8.4-10.2) mg/dL Total Bilirubin 0.8 (0.2-1.3) mg/dL AST 22 (17-59) U/L ALT 15 (4-49) U/L Alkaline Phosphatase 59 (38-126) U/L Total Protein 6.6 (6.3-8.2) g/dL Albumin 4.4 (3.5-5.0) g/dL
[2023-10-29] MEDS: HYDROCORTISONE 10 MG TAB PO SCH (11:44)
[2023-10-29] MEDS: CALCIUM ACETATE 667 MG TAB PO SCH (11:47)
[2023-10-29] MEDS: LACTATED RINGERS 1,000 ML IV SCH (12:01)
[2023-10-29] MEDS: MAGNESIUM SULFATE-D5W PMX 1 GM in DEXTROSE/WATER 1 100ML.BAG IVPB SCH (12:01)
[2023-10-29] MEDS: HYDROmorphone 1 MG/ML 1 ML SYRINGE IVP PRN (14:51)
[2023-10-29] MEDS: MIDODRINE 5 MG TAB PO SCH (16:36)
--- NOTE | 2023-10-29 18:42 | P.HPIM ---
History of Present Illness H&P Date: 10/29/23 Chief Complaint: Abdominal pain 53-year-old male, history of hypertension, hyperlipidemia, hypothyroidism, diabetes mellitus, presents to the ER for evaluation abdominal pain severe abdominal pain left-sided abdominal pain. Patient has persistent nausea without vomiting since significant nausea without vomiting with history of diverticulitis and this feels similar. He reports he was first diagnosed with diverticulitis in 1995. But since then he had a break in how often he was having diverticulitis. But recently it has been almost every 6 months that he has a flareup and requires antibiotics. This is his third flareup since April. This is his first hospitalization for diverticulitis. Last colonoscopy was a year ago and he reports that reported extensive diverticulosis. Patient does have a history of kidney transplant and bilateral nephrectomy for polycystic kidney disease. Patient reports that yesterday after lunch he had severe left lower quadrant abdominal pain. Blood work completed in ED reveals a WBC of 15.1, hemoglobin of 13.2 and platelet count of 172, sodium 138, potassium 3.9, BUN/creatinine of 30/1.63 and blood glucose of 150, lactic acid of 1.2 CT of the abdomen and pelvis is positive for significant severe diverticulitis Review of Systems REVIEW OF SYSTEMS: CONSTITUTIONAL: No fever, no malaise, no fatigue. HEENT: No recent visual problems or hearing problems. Denied any sore throat. CARDIOVASCULAR: No chest pain, orthopnea, PND, no palpitations, no syncope. PULMONARY: No shortness of breath, no cough, no hemoptysis. GASTROINTESTINAL: No diarrhea, no nausea, no vomiting, no abdominal pain. NEUROLOGICAL: No headaches, no weakness, no numbness. HEMATOLOGICAL: Denies any bleeding or petechiae. GENITOURINARY: Denies any burning micturition, frequency, or urgency. MUSCULOSKELETAL/RHEUMATOLOGICAL: Denies any joint pain, swelling, or any muscle pain. ENDOCRINE: Denies any polyuria or polydipsia. The rest of the 14-point review of systems is negative. Past Medical History Past Medical History: Chest Pain / Angina, Diabetes Mellitus, Hyperlipidemia, Hypertension, Osteoarthritis (OA), Sleep Apnea/CPAP/BIPAP, Thyroid Disorder Additional Past Medical History / Comment(s): Seasonal Allergies. No treatment needed for Diabetes, just watching levels. Hypertension resolved after kidney transplant. CPAP use. History of Any Multi-Drug Resistant Organisms: None Reported Past Surgical History: Orthopedic Surgery Additional Past Surgical History / Comment(s): Bilateral Neprectomy, right kidney transplant 04/2016, parathyroidectomy, colonoscopy, liopma removed from left posterior shoulder, left knee arthroscopy, lumbar puncture, bilateral optic sheath surgery, bilateral cataracts removed, lipoma removed from left posterior neck. Past Anesthesia/Blood Transfusion Reactions: Motion Sickness, Postoperative Nausea & Vomiting (PONV) Past Psychological History: Anxiety Smoking Status: Never smoker Past Alcohol Use History: Occasional Past Drug Use History: None Reported - Past Family History Mother Family Medical History: No Reported History Medications and Allergies Home Medications Medication Instructions Recorded Confirmed Type Atorvastatin [Lipitor] 40 mg PO HS 11/26/21 10/29/23 History Azelastine HCl [Astepro] 2 spray NASAL DAILY 11/26/21 10/29/23 History Calcium Acetate [Phoslo] 1,334 mg PO TID-W/MEALS 11/26/21 10/29/23 History Calcium Carbonate [Tums] 2,000 mg PO QAM 11/26/21 10/29/23 History Famotidine [Pepcid] 20 mg PO HS 11/26/21 10/29/23 History Fluticasone Propionate [Flonase 2 spray EA NOSTRIL DAILY 11/26/21 10/29/23 History Allergy Relief] Folic Acid 0.4 mg PO BID 11/26/21 10/29/23 History Hydrocortisone [Cortef] 10 mg PO BID 11/26/21 10/29/23 History Hyoscyamine Sulfate [Levsin] 0.125 mg PO TID-W/MEALS 11/26/21 10/29/23 History Levothyroxine Sodium [Synthroid] 75 mcg PO QAM 11/26/21 10/29/23 History Loperamide HCl [Imodium A-D] 2 mg PO DAILY 11/26/21 10/29/23 History Loratadine [Claritin] 10 mg PO DAILY 11/26/21 10/29/23 History Magnesium Oxide [Mag-Ox] 400 mg PO QAM 11/26/21 10/29/23 History Montelukast Sodium [Singulair] 10 mg PO DAILY 11/26/21 10/29/23 History Multivitamins, Thera [Multivitamin 1 tab PO QAM 11/26/21 10/29/23 History (formulary)] [place]-3 Fatty Acids/Fish Oil [Fish 1 cap PO BID 11/26/21 10/29/23 History Oil 1,000 mg Softgel] Tacrolimus [Prograf] 3 mg PO Q12H 11/26/21 10/29/23 History Vitamin E (Dl,Tocopheryl Acet) 400 unit PO QAM 11/26/21 10/29/23 History [Vitamin E (400 Iu = 180 mg)] acetaZOLAMIDE [Diamox] 500 mg PO BID 11/26/21 10/29/23 History allopurinoL [Zyloprim] 200 mg PO DAILY 11/26/21 10/29/23 History calcitrioL 0.25 mcg PO BID 11/26/21 10/29/23 History minoxidiL [Rogaine] 1 applic TOPICAL BID 11/26/21 10/29/23 History mycophenolate mofetiL [Cellcept] 750 mg PO BID 11/26/21 10/29/23 History Midodrine [ProAmatine] 10 mg PO TID 10/29/23 10/29/23 History Sertraline [Zoloft] 150 mg PO HS 10/29/23 10/29/23 History Allergies Allergy/AdvReac Type Severity Reaction Status Date / Time doxycycline AdvReac Nausea & Verified 10/29/23 07:43 Vomiting & Diarrhea Physical Exam Vitals: Vital Signs Temp Pulse Resp BP Pulse Ox 10/29/23 12:03 100 F H 93 18 102/61 95 10/29/23 10:18 100 F H 86 20 100/66 96 10/29/23 08:39 99 18 87/64 97 10/29/23 06:29 100 18 97/57 98 10/29/23 04:57 100 16 114/92 94 L 10/29/23 03:56 89 18 105/79 98 10/29/23 03:04 76 18 126/74 99 10/29/23 00:34 98.2 F 80 20 131/81 97 Intake and Output 10/28/23 10/29/23 10/29/23 22:59 06:59 14:59 Other: Weight 99.79 kg General appearance: alert, in no apparent distress Head exam: Present: atraumatic, normocephalic, normal inspection Eye exam: Present: normal appearance, PERRL, EOMI. Absent: scleral icterus, conjunctival injection, periorbital swelling ENT exam: Present: normal exam, mucous membranes moist Neck exam: Present: normal inspection. Absent: tenderness, meningismus, lymphadenopathy Respiratory exam: Present: normal lung sounds bilaterally. Absent: respiratory distress, wheezes, rales, rhonchi, stridor Cardiovascular Exam: Present: regular rate, normal rhythm, normal heart sounds. Absent: systolic murmur, diastolic murmur, rubs, gallop, clicks GI/Abdominal exam: Present: soft, normal bowel sounds. Absent: distended, tenderness, guarding, rebound, rigid Extremities exam: Present: normal inspection, full ROM, normal capillary refill. Absent: tenderness, pedal edema, joint swelling, calf tenderness Back exam: Present: normal inspection Neurological exam: Present: alert, oriented X3, CN II-XII intact Psychiatric exam: Present: normal affect, normal mood Skin exam: Present: warm, dry, intact, normal color. Absent: rash Results CBC & Chem 7: 10/29/23 03:11 10/29/23 01:24 Labs: Abnormal Lab Results - Last 24 Hours (Table) 10/29/23 10/29/23 Range/Units 01:24 03:11 WBC 15.1 H (3.8-10.6) k/uL Neutrophils # 13.9 H (1.3-7.7) k/uL Lymphocytes # 0.5 L (1.0-4.8) k/uL Chloride 108 H (98-107) mmol/L Carbon Dioxide 16 L (22-30) mmol/L BUN 30 H (9-20) mg/dL Creatinine 1.63 H (0.66-1.25) mg/dL Glucose 150 H (74-99) mg/dL Calcium 7.7 L (8.4-10.2) mg/dL Magnesium 1.4 L (1.6-2.3) mg/dL Assessment and Plan Assessment: 1. Severe acute diverticulitis -Patient is currently on IV antibiotics in form of Unasyn 3 g every 8 hours; continue with IV fluid hydration; general surgery is consulted; patient will be kept n.p.o. -Will monitor CBC, CRP and procalcitonin 2. Hypomagnesemia; supplemented in ED; monitor electrolytes closely 3. Hypertension; currently not on any antihypertensive therapy 4. Hyperlipidemia; Lipitor 40 mg p.o. nightly 5. Hypothyroidism; levothyroxine 75 mcg daily 6. History of renal transplant; continue current therapy; monitor renal functi on closely DVT prophylaxis; SCDs/subcu heparin CODE STATUS; full code
[2023-10-29] MEDS: SERTRALINE 100 MG TAB PO SCH (20:44)
[2023-10-29] MEDS: ATORVASTATIN 40 MG TAB PO SCH (20:45)
[2023-10-29] MEDS: FOLIC ACID 1 MG TAB PO SCH (20:45)
[2023-10-29] MEDS: TACROLIMUS 1 MG CAP PO SCH (20:47)
[2023-10-29] MEDS: FAMOTIDINE 20 MG TAB PO SCH (21:16)
[2023-10-30] MEDS: LEVOTHYROXINE 75 MCG TAB PO SCH (05:36)
[2023-10-30] MEDS: LORATADINE 10 MG TAB PO SCH (08:31)
[2023-10-30] MEDS: MAGNESIUM OXIDE 400 MG TAB PO SCH (08:31)
[2023-10-30] MEDS: CALCIUM CARBONATE 500 MG CHEWABLE PO SCH (08:32)
[2023-10-30] MEDS: MONTELUKAST 10 MG TAB PO SCH (08:32)
[2023-10-30] MEDS: AZELASTINE 137MCG/SPRAY NASAL SCH (08:33)
[2023-10-30] MEDS: FLUTICASONE 50MCG/SPRAY NASAL 16GM EA NOSTRIL SCH (08:33)
[2023-10-30 09:38] LABS: Basophils # (A) 0.01 X 10*3/uL (0.00-0.10); Basophils % (A) 0.1 %; Eosinophils # (A) 0.01 X 10*3/uL (0.04-0.35); Eosinophils % (A) 0.1 %; HCT 36.5 % (39.6-50.0); HGB 11.6 g/dL (13.0-17.0); Lymphocytes # (A) 0.51 X 10*3/uL (0.90-5.00); Lymphocytes % (A) 3.6 %; MCHC 31.8 g/dL (32.0-37.0); MCV 91.3 FL (80.0-97.0); Mean Platelet Volume 10.5 FL (9.5-12.2); Monocytes # (A) 0.65 X 10*3/uL (0.20-1.00); Monocytes % (A) 4.6 %; NRBC Per 100 WBC 0 X 10*3/uL (0.00-0.01); Neutrophils # (A) 12.78 X 10*3/uL (1.80-7.70); Neutrophils % (A) 91.2 %; Platelet Count 173 X 10*3/uL (140-440); RDW 13.6 % (11.5-14.5); WBC 14.02 X 10*3/uL (4.50-10.00)
[2023-10-30 10:15] LABS: BUN/Creat Ratio 16.25 Ratio (12.00-20.00); Glucose 115 mg/dL (70-110); Magnesium 2.1 mg/dL (1.5-2.4)
[2023-10-30 10:16] LABS: ALT 10 U/L (10-49); AST 11 U/L (14-35); Albumin 3.8 g/dL (3.8-4.9); Albumin/Globulin Ratio 2.53 Ratio (1.60-3.17); Alkaline Phosphatase 55 U/L (41-126); Calcium 6.9 mg/dL (8.7-10.3); Carbon Dioxide 19.1 mmol/L (21.6-31.8); Chloride 110 mmol/L (96-109); Globulin 1.5 g/dL (1.6-3.3); Phosphorus 4.2 mg/dL (2.4-5.1); Sodium 141 mmol/L (135-145); Total Protein 5.3 g/dL (6.2-8.2)
[2023-10-30] MEDS: MIDODRINE 5 MG TAB PO SCH (12:43)
--- NOTE | 2023-10-30 14:11 | P.PN ---
Subjective Progress Note Date: 10/30/23 Principal diagnosis: Diverticulitis Patient is having flatus. Overall he is feeling better. Objective - Vital Signs Vital signs: Vital Signs Temp 99.2 F 10/30/23 08:00 Pulse 87 10/30/23 08:00 Resp 17 10/30/23 08:00 BP 111/67 10/30/23 08:00 Pulse Ox 92 L 10/30/23 08:00 FiO2 Intake & Output 10/29/23 10/30/23 10/30/23 18:59 06:59 18:59 Weight 99.79 kg Other: Voiding Method Toilet # Voids 2 - Constitutional General appearance: Present: average body habitus, no acute distress - EENT Eyes: Present: EOMI, PERRLA ENT: Present: NA/AT Ears: bilateral: normal - Respiratory Respiratory: bilateral: CTA - Cardiovascular Rhythm: regular - Gastrointestinal General gastrointestinal: Present: normal bowel sounds, soft. Absent: tenderness - Integumentary Integumentary: Present: normal turgor - Neurologic Neurologic: Present: CNII-XII intact - Musculoskeletal Musculoskeletal: Present: gait normal - Labs CBC & Chem 7: 10/30/23 05:19 10/30/23 05:19 Labs: Abnormal Lab Results - Last 24 Hours (Table) 10/30/23 10/30/23 Range/Units 05:19 05:19 WBC 14.02 H (4.50-10.00) X 10*3/uL RBC 4.00 L (4.40-5.60) X 10*6/uL Hgb 11.6 L (13.0-17.0) g/dL Hct 36.5 L (39.6-50.0) % MCHC 31.8 L (32.0-37.0) g/dL Immature Gran # 0.06 H (0.00-0.04) X 10*3/uL Neutrophils # 12.78 H (1.80-7.70) X 10*3/uL Lymphocytes # 0.51 L (0.90-5.00) X 10*3/uL Eosinophils # 0.01 L (0.04-0.35) X 10*3/uL Chloride 110 H (96-109) mmol/L Carbon Dioxide 19.1 L (21.6-31.8) mmol/L Creatinine 1.6 H (0.6-1.5) mg/dL Est GFR (CKD-EPI) 52 L (>=60) Glucose 115 H (70-110) mg/dL Calcium 6.9 L (8.7-10.3) mg/dL AST 11 L (14-35) U/L Total Protein 5.3 L (6.2-8.2) g/dL Globulin 1.5 L (1.6-3.3) g/dL Assessment and Plan Assessment: Diverticulitis symptoms improved. Plan: Continue antibiotics, advance diet Time with Patient: Greater than 30
--- NOTE | 2023-10-30 15:28 | P.PN ---
Subjective Progress Note Date: 10/30/23 53-year-old male, history of hypertension, hyperlipidemia, hypothyroidism, diabetes mellitus, presents to the ER for evaluation abdominal pain severe abdominal pain left-sided abdominal pain. Patient has persistent nausea without vomiting since significant nausea without vomiting with history of divertic ulitis and this feels similar. He reports he was first diagnosed with diverticulitis in 1995. But since then he had a break in how often he was having diverticulitis. But recently it has been almost every 6 months that he has a flareup and requires antibiotics. This is his third flareup since April. This is his first hospitalization for diverticulitis. Last colonoscopy was a year ago and he reports that reported extensive diverticulosis. Patient does have a history of kidney transplant and bilateral nephrectomy for polycystic kidney disease. Patient reports that yesterday after lunch he had severe left lower quadrant abdominal pain. Blood work completed in ED reveals a WBC of 15.1, hemoglobin of 13.2 and platelet count of 172, sodium 138, potassium 3.9, BUN/creatinine of 30/1.63 and blood glucose of 150, lactic acid of 1.2 CT of the abdomen and pelvis is positive for significant severe diverticulitis Objective - Vital Signs Vital signs: Vital Signs Temp 98.4 F 10/30/23 14:00 Pulse 77 10/30/23 14:00 Resp 18 10/30/23 14:00 BP 107/71 10/30/23 14:00 Pulse Ox 97 10/30/23 14:00 FiO2 Intake & Output 10/29/23 10/30/23 10/30/23 18:59 06:59 18:59 Weight 99.79 kg Other: Voiding Method Toilet # Voids 2 - Exam General appearance: alert, in no apparent distress Head exam: Present: atraumatic, normocephalic, normal inspection Eye exam: Present: normal appearance, PERRL, EOMI. Absent: scleral icterus, conjunctival injection, periorbital swelling Neck exam: Present: normal inspection. Absent: tenderness, meningismus, lymphadenopathy Respiratory exam: Present: normal lung sounds bilaterally. Absent: respiratory distress, wheezes, rales, rhonchi, stridor Cardiovascular Exam: Present: regular rate, normal rhythm, normal heart sounds. Absent: systolic murmur, diastolic murmur, rubs, gallop, clicks GI/Abdominal exam: Present: soft, normal bowel sounds. Absent: distended, tenderness, guarding, rebound, rigid Extremities exam: Present: normal inspection, full ROM, normal capillary refill. Absent: tenderness, pedal edema, joint swelling, calf tenderness Neurological exam: Present: alert, oriented X3, CN II-XII intact Skin exam: Present: warm, dry, intact, normal color. Absent: rash - Labs CBC & Chem 7: 10/30/23 05:19 10/30/23 05:19 Labs: Abnormal Lab Results - Last 24 Hours (Table) 10/30/23 10/30/23 Range/Units 05:19 05:19 WBC 14.02 H (4.50-10.00) X 10*3/uL RBC 4.00 L (4.40-5.60) X 10*6/uL Hgb 11.6 L (13.0-17.0) g/dL Hct 36.5 L (39.6-50.0) % MCHC 31.8 L (32.0-37.0) g/dL Immature Gran # 0.06 H (0.00-0.04) X 10*3/uL Neutrophils # 12.78 H (1.80-7.70) X 10*3/uL Lymphocytes # 0.51 L (0.90-5.00) X 10*3/uL Eosinophils # 0.01 L (0.04-0.35) X 10*3/uL Chloride 110 H (96-109) mmol/L Carbon Dioxide 19.1 L (21.6-31.8) mmol/L Creatinine 1.6 H (0.6-1.5) mg/dL Est GFR (CKD-EPI) 52 L (>=60) Glucose 115 H (70-110) mg/dL Calcium 6.9 L (8.7-10.3) mg/dL AST 11 L (14-35) U/L Total Protein 5.3 L (6.2-8.2) g/dL Globulin 1.5 L (1.6-3.3) g/dL
[2023-10-31] MEDS: HYOSCYAMINE SULFATE 0.125 MG TAB PO SCH (09:35)
[2023-10-31 10:50] LABS: BUN/Creat Ratio 12.19 Ratio (12.00-20.00); Blood Urea Nitrogen 19.5 mg/dL (9.0-27.0); Calcium 6.8 mg/dL (8.7-10.3); Chloride 107 mmol/L (96-109); Glucose 122 mg/dL (70-110); Potassium 3.7 mmol/L (3.5-5.5); Sodium 141 mmol/L (135-145)
--- NOTE | 2023-10-31 10:52 | P.PN ---
Subjective Progress Note Date: 10/31/23 Patient still has complete the left-sided pain. He states the pain is improved. Objective - Vital Signs Vital signs: Vital Signs Temp 98.3 F 10/31/23 07:50 Pulse 69 10/31/23 07:50 Resp 17 10/31/23 07:50 BP 115/67 10/31/23 07:50 Pulse Ox 95 10/31/23 07:50 FiO2 Intake & Output 10/30/23 10/31/23 10/31/23 18:59 06:59 18:59 Intake Total 1480 1100 Balance 1480 1100 Intake: Intake, IV Titration 1100 Amount Ampicillin-Sulbactam 3 gm 200 In Sodium Chloride 0.9% 100 ml @ 200 mls/hr IVPB Q8H [facility] Rx#:[id number] Lactated Ringers 1,000 ml 900 @ 75 mls/hr IV .[id number] [facility] Rx#:[id number] Oral 1480 Other: # Voids 3 4 - Gastrointestinal Gastrointestinal Comment(s): Mild left-sided pain. - Labs CBC & Chem 7: 10/30/23 05:19 10/31/23 03:52 Labs: Abnormal Lab Results - Last 24 Hours (Table) 10/31/23 Range/Units 03:52 Carbon Dioxide 20.0 L (21.6-31.8) mmol/L Anion Gap 14.00 H (4.00-12.00) mmol/L Creatinine 1.6 H (0.6-1.5) mg/dL Est GFR (CKD-EPI) 52 L (>=60) Glucose 122 H (70-110) mg/dL Calcium 6.8 L (8.7-10.3) mg/dL Assessment and Plan Assessment: Improving diverticulitis. Patient will remain on clear liquid diet for now.
--- NOTE | 2023-10-31 16:27 | P.PN ---
Subjective 53-year-old male, history of hypertension, hyperlipidemia, hypothyroidism, diabetes mellitus, presents to the ER for evaluation abdominal pain severe abdominal pain left-sided abdominal pain. Patient has persistent nausea without vomiting since significant nausea without vomiting with history of diverticulitis and this feels similar. He reports he was first diagnosed with diverticulitis in 1995. But since then he had a break in how often he was having diverticulitis. But recently it has been almost every 6 months that he has a flareup and requires antibiotics. This is his third flareup since April. This is his first hospitalization for diverticulitis. Last colonoscopy was a year ago and he reports that reported extensive diverticulosis. Patient does have a history of kidney transplant and bilateral nephrectomy for polycystic kidney disease. Patient reports that yesterday after lunch he had severe left lower quadrant abdominal pain. Blood work completed in ED reveals a WBC of 15.1, hemoglobin of 13.2 and platelet count of 172, sodium 138, potassium 3.9, BUN/creatinine of 30/1.63 and blood glucose of 150, lactic acid of 1.2 CT of the abdomen and pelvis is positive for significant severe diverticulitis 10/31/2023 Patient is seen and evaluated in room at bedside; family members are present in the room; continues to report significant pain on left upper and lower quadrant Vital signs reviewed reveal temperature of 98.3, pulse 69, respirate 17 and blood pressure 115/67 Lab review shows sodium of 141, potassium 3.7, BUNs/creatinine of 19/1.6; CBC is pending Patient is currently on a clear liquid diet; continue IV antibiotics in form of IV Unasyn Surgery on board and recommending to continue current management at this time Objective - Vital Signs Vital signs: Vital Signs Temp 98.3 F 10/31/23 07:50 Pulse 69 10/31/23 07:50 Resp 17 10/31/23 07:50 BP 115/67 10/31/23 07:50 Pulse Ox 95 10/31/23 07:50 FiO2 Intake & Output 10/30/23 10/31/23 10/31/23 18:59 06:59 18:59 Intake Total 1480 1100 Balance 1480 1100 Intake: Intake, IV Titration 1100 Amount Ampicillin-Sulbactam 3 gm 200 In Sodium Chloride 0.9% 100 ml @ 200 mls/hr IVPB Q8H [facility] Rx#:[id number] Lactated Ringers 1,000 ml 900 @ 75 mls/hr IV .[id number] [facility] Rx#:[id number] Oral 1480 Other: # Voids 3 4 - Exam General appearance: alert, in no apparent distress Head exam: Present: atraumatic, normocephalic, normal inspection Eye exam: Present: normal appearance, PERRL, EOMI. Absent: scleral icterus, con junctival injection, periorbital swelling Neck exam: Present: normal inspection. Absent: tenderness, meningismus, lymphadenopathy Respiratory exam: Present: normal lung sounds bilaterally. Absent: respiratory distress, wheezes, rales, rhonchi, stridor Cardiovascular Exam: Present: regular rate, normal rhythm, normal heart sounds. Absent: systolic murmur, diastolic murmur, rubs, gallop, clicks GI/Abdominal exam: Present: soft, normal bowel sounds. Absent: distended, tenderness, guarding, rebound, rigid Extremities exam: Present: normal inspection, full ROM, normal capillary refill. Absent: tenderness, pedal edema, joint swelling, calf tenderness Neurological exam: Present: alert, oriented X3, CN II-XII intact Skin exam: Present: warm, dry, intact, normal color. Absent: rash - Labs CBC & Chem 7: 10/30/23 05:19 10/31/23 03:52 Labs: Abnormal Lab Results - Last 24 Hours (Table) 10/31/23 Range/Units 03:52 Carbon Dioxide 20.0 L (21.6-31.8) mmol/L Anion Gap 14.00 H (4.00-12.00) mmol/L Creatinine 1.6 H (0.6-1.5) mg/dL Est GFR (CKD-EPI) 52 L (>=60) Glucose 122 H (70-110) mg/dL Calcium 6.8 L (8.7-10.3) mg/dL Assessment and Plan Assessment: 1. Severe acute diverticulitis -Patient is currently on IV antibiotics in form of Unasyn 3 g every 8 hours; continue with IV fluid hydration; general surgery is consulted; patient will be kept n.p.o. -Will monitor CBC, CRP and procalcitonin 2. Hypomagnesemia; supplemented in ED; monitor electrolytes closely 3. Hypertension; currently not on any antihypertensive therapy 4. Hyperlipidemia; Lipitor 40 mg p.o. nightly 5. Hypothyroidism; levothyroxine 75 mcg daily 6. History of renal transplant; continue current therapy; monitor renal function closely DVT prophylaxis; SCDs/subcu heparin CODE STATUS; full code
[2023-11-01 08:49] LABS: BUN/Creat Ratio 10.43 Ratio (12.00-20.00); Blood Urea Nitrogen 14.6 mg/dL (9.0-27.0); Calcium 6.5 mg/dL (8.7-10.3); Carbon Dioxide 21.2 mmol/L (21.6-31.8); Chloride 105 mmol/L (96-109); Glucose 101 mg/dL (70-110); Potassium 3.3 mmol/L (3.5-5.5); Sodium 140 mmol/L (135-145)
[2023-11-01 08:57] LABS: Basophils % (A) 0 %; Eosinophils # (A) 0.1 k/uL (0-0.7); Eosinophils % (A) 1 %; HCT 33.9 % (39.0-53.0); HGB 11.2 gm/dL (13.0-17.5); Lymphocytes # (A) 0.7 k/uL (1.0-4.8); Lymphocytes % (A) 7 %; MCH 30.2 pg (25.0-35.0); MCV 91.4 fL (80.0-100.0); Mean Platelet Volume 8.6; Monocytes # (A) 0.5 k/uL (0-1.0); Monocytes % (A) 5 %; Neutrophils # (A) 8.7 k/uL (1.3-7.7); Neutrophils % (A) 86 %; Platelet Count 162 k/uL (150-450); RBC 3.71 m/uL (4.30-5.90); RDW 13.7 % (11.5-15.5); WBC 10.1 k/uL (3.8-10.6)
[2023-11-01] MEDS: AMPICILLIN-SULBACTAM 3 GM in SODIUM CHLORIDE 0.9% 100 ML IVPB SCH (11:32)
--- NOTE | 2023-11-01 13:35 | P.PN ---
Subjective Progress Note Date: 11/01/23 CHIEF COMPLAINT: Diverticulitis HISTORY OF PRESENT ILLNESS: Patient admitted to the hospital diverticulitis. He reports that his pain in the left lower quadrant is less than admission. 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 He does rate his pain about a 2 out of 10. He is tolerating clear liquids. He is having diarrhea. He complains of not being able to sleep. Afebrile. WBC is down from 14-10 Hgb 11.2 platelets 162 sodium is 140 potassium 3.3 creatinine 1.6 PHYSICAL EXAM: VITAL SIGNS: Reviewed. GENERAL: Well-developed in no acute distress. ABDOMEN: Soft. Nondistended. Tender with palpation left lower quadrant NEUROLOGIC: Alert and oriented. Cranial nerves II through XII grossly intact. ASSESSMENT: 1. Severe acute sigmoid diverticulitis 2. Prior history of diverticulitis 3. 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 Signing provider agrees with the documented findings, assessment, and plan of care. Objective - Vital Signs Vital signs: Vital Signs Temp 98.6 F 11/01/23 12:58 Pulse 62 11/01/23 12:58 Resp 17 11/01/23 12:58 BP 135/83 11/01/23 12:58 Pulse Ox 97 11/01/23 12:58 FiO2 Intake & Output 10/31/23 11/01/23 11/01/23 18:59 06:59 18:59 Intake Total 1080 1700 Balance 1080 1700 Intake: Intake, IV Titration 550 Amount Ampicillin-Sulbactam 3 gm 100 In Sodium Chloride 0.9% 100 ml @ 200 mls/hr IVPB Q8H [facility] Rx#:[id number] Lactated Ringers 1,000 ml 450 @ 75 mls/hr IV .[id number] [facility] Rx#:[id number] Oral 1080 1150 Other: Voiding Method Toilet Urinal # Voids 3 3 1 # Bowel Movements 2 1 - Labs CBC & Chem 7: 11/01/23 05:41 11/01/23 05:41 Labs: Abnormal Lab Results - Last 24 Hours (Table) 11/01/23 11/01/23 Range/Units 05:41 05:41 RBC 3.71 L (4.30-5.90) m/uL Hgb 11.2 L (13.0-17.5) gm/dL Hct 33.9 L (39.0-53.0) % Neutrophils # 8.7 H (1.3-7.7) k/uL Lymphocytes # 0.7 L (1.0-4.8) k/uL Potassium 3.3 L (3.5-5.5) mmol/L Carbon Dioxide 21.2 L (21.6-31.8) mmol/L Anion Gap 13.80 H (4.00-12.00) mmol/L BUN/Creatinine Ratio 10.43 L (12.00-20.00) Ratio Calcium 6.5 L (8.7-10.3) mg/dL
[2023-11-01] MEDS: POTASSIUM CHLORIDE ER 20 MEQ TAB.ER PO STA (13:55)
[2023-11-01] MEDS: CALCIUM GLUCONATE IN NACL 2 GM in SALINE 1 100ML.BAG IVPB ONE (15:40)
[2023-11-01] MEDS: IOPAMIDOL CONTRAST (ORAL USE) VIAL PO PRN (15:40)
--- NOTE | 2023-11-01 18:00 | CT ---
EXAMINATION TYPE: CT abdomen pelvis wo con CT DLP: 1231.30 mGycm, Automated exposure control for dose reduction was used. DATE OF EXAM: 11/01/2023 5:23 PM COMPARISON: CT abdomen pelvis most recent from 10/29/2023 CLINICAL INDICATION:Male, 53 years old with history of abdominal pain, diverticulitis; diverticulitis TECHNIQUE: Axial CT abdomen pelvis wo con;Sagittal and coronal reformats were created on a separate workstation. Contrast used: mL of , (none if empty) Oral contrast used: with Oral Contrast (none if empty) FINDINGS: LOWER CHEST: Unremarkable ABDOMEN LIVER: Unremarkable GALLBLADDER AND BILE DUCTS: Unremarkable. PANCREAS: Unremarkable. SPLEEN: Unremarkable. ADRENAL GLANDS: Unremarkable. KIDNEYS AND URETERS: The left kidney is surgically absent the right kidney is positioned inferiorly t owards the pelvis possibly representing transplant kidney. The [place] right kidney is not definitivel y visualized. No right transplant kidney obstructive uropathy. PELVIS BLADDER: Unremarkable REPRODUCTIVE: Unremarkable. ABDOMEN & PELVIS STOMACH AND BOWEL: Progression of diverticulitis/colitis involving the descending colon/cecum with or ganizing fluid collection superficial to the bowel series 3 image 60 measuring 48 x 31 mm and extensi ve inflammation changes present. Scattered colonic diverticula. No evidence of obstruction. PERITONEUM/RETROPERITONEUM: No evidence of pneumoperitoneum or free fluid. VASCULATURE: No evidence of aortic aneurysm. MUSCULOSKELETAL: No acute osseous abnormalities LYMPH NODES: No gross evidence for lymphadenopathy. SOFT TISSUE/ABDOMINAL WALL: Fat-containing umbilical hernia. IMPRESSION: 1. Sigmoid/descending Colitis/diverticulitis with organizing fluid collection adjacent to the sigmoi d colon during 48 x 31 mm. 2. Trace bilateral pleural effusions.
[2023-11-01] MEDS: acetaZOLAMIDE 250 MG TAB PO SCH (21:13)
[2023-11-02] MEDS: ZOLPIDEM 5 MG TAB PO PRN (00:40)
--- NOTE | 2023-11-02 04:55 | P.PN ---
Subjective Progress Note Date: 11/01/23 53-year-old male, history of hypertension, hyperlipidemia, hypothyroidism, diabetes mellitus, presents to the ER for evaluation abdominal pain severe abdominal pain left-sided abdominal pain. Patient has persistent nausea without vomiting since significant nausea without vomiting with history of dive rticulitis and this feels similar. He reports he was first diagnosed with diverticulitis in 1995. But since then he had a break in how often he was having diverticulitis. But recently it has been almost every 6 months that he has a flareup and requires antibiotics. This is his third flareup since April. This is his first hospitalization for diverticulitis. Last colonoscopy was a year ago and he reports that reported extensive diverticulosis. Patient does have a history of kidney transplant and bilateral nephrectomy for polycystic kidney disease. Patient reports that yesterday after lunch he had severe left lower quadrant abdominal pain. Blood work completed in ED reveals a WBC of 15.1, hemoglobin of 13.2 and platelet count of 172, sodium 138, potassium 3.9, BUN/creatinine of 30/1.63 and blood glucose of 150, lactic acid of 1.2 CT of the abdomen and pelvis is positive for significant severe diverticulitis 10/31/2023 Patient is seen and evaluated in room at bedside; family members are present in the room; continues to report significant pain on left upper and lower quadrant Vital signs reviewed reveal temperature of 98.3, pulse 69, respirate 17 and blood pressure 115/67 Lab review shows sodium of 141, potassium 3.7, BUNs/creatinine of 19/1.6; CBC is pending Patient is currently on a clear liquid diet; continue IV antibiotics in form of IV Unasyn Surgery on board and recommending to continue current management at this time 11/01/2023 Patient is seen in follow-up today being followed by general surgery maintained on antibiotics for diverticulitis. Patient is continued on IV Unasyn along with IV hydration currently maintained on clear liquids. Patient is afebrile and white count has normalized and patient is requesting when he can go home. Patient continues to report pain and is continued on IV pain medications. No reports of chest pain or shortness of breath and patient has been encouraged to increase activity as tolerated. Potassium is 3.3 and will replace per protocol and follow-up on repeat labs. Calcium on the lower side as well and will give a dose of calcium. Patient does take calcium outpatient chronically and patient remains on antirejection meds as patient has a solitary right kidney. Patient reports he has had multiple episodes of acute diverticulitis outpatient which has been treated with family practice provider. Patient has never been hospitalized for this. Given patient's continued pain, surgery has ordered a repeat CT abdomen for evaluation. Encouraged to increase activity as tolerated and frequent walking around the halls. All medications reviewed and resumed as appropriate Review of systems: Constitutional: No reports of fatigue, fever, or chills Cardiovascular: No reports of chest pain or palpitations Respiratory: No reports of shortness of breath or cough GI: No reports of nausea, vomiting, or diarrhea, reports continued abdominal pain : No reports of dysuria or retention Neurovascular: No reports of weakness or numbness All medications have been reviewed Physical exam: Gen: This is a 53-year-old male who is awake, alert and oriented x 3, well- developed, well-nourished HEENT: Head is atraumatic, normocephalic. Pupils equal, round. Sclerae is anicteric. NECK: Supple. No JVD. No lymphadenopathy. No thyromegaly. LUNGS: Clear to auscultation. No wheezes or rhonchi. No intercostal retractions. HEART: Regular rate and rhythm. No murmur. ABDOMEN: Soft. Tender on palpation. Bowel sounds are present. No masses. EXTREMITIES: No pedal edema. No calf tenderness. NEUROLOGICAL: Patient is awake, alert and oriented x3. Cranial nerves 2 through 12 are grossly intact. Assessment: -Severe acute diverticulitis -Hypomagnesemia; improved post replacement -Hypertension; currently not on any antihypertensive therapy -Hyperlipidemia -Hypothyroidism -History of renal transplant; has a solitary right kidney, continues on antirejection medications -GI prophylaxis -DVT prophylaxis; SCDs/subcu heparin -full code Plan: Patient is currently continued on gentle IV hydration along with antibiotics in the form of Unasyn with general surgery following. Patient has been started on clear liquids and tolerating thus far although continues to report abdominal pain. Repeat CT abdomen is ordered and pending for this afternoon per surgery. Encouraged increase activity as tolerated and frequent walking around the halls Potassium 3.3 today and calcium slightly low will replace per protocol Home medications discussed with patient and reviewed and resumed as appropriate Will follow-up with repeat labs in the a.m. Prognosis is guarded The impression and plan of care has been dictated by Perla Santos, Nurse Practitioner as directed. Dr. Ruben MD I have performed a history and examination and MDM of this patient, discussed the same with the dictator, and agree with the dictator's assessment and plan as written ,documented as a scribe. Based on total visit time, I have performed more than 50% of the visit. Objective - Vital Signs Vital signs: Vital Signs Temp 98.6 F 11/01/23 12:58 Pulse 62 11/01/23 12:58 Resp 17 11/01/23 12:58 BP 135/83 11/01/23 12:58 Pulse Ox 97 11/01/23 12:58 FiO2 Intake & Output 10/31/23 11/01/23 11/01/23 18:59 06:59 18:59 Intake Total 1080 1700 Balance 1080 1700 Intake: Intake, IV Titration 550 Amount Ampicillin-Sulbactam 3 gm 100 In Sodium Chloride 0.9% 100 ml @ 200 mls/hr IVPB Q8H JEY Rx#:[id number] Lactated Ringers 1,000 ml 450 @ 75 mls/hr IV .[id number] JEY Rx#:[id number] Oral 1080 1150 Other: Voiding Method Toilet Urinal # Voids 3 3 1 # Bowel Movements 2 1 - Labs CBC & Chem 7: 11/01/23 05:41 11/01/23 05:41 Labs: Abnormal Lab Results - Last 24 Hours (Table) 11/01/23 11/01/23 Range/Units 05:41 05:41 RBC 3.71 L (4.30-5.90) m/uL Hgb 11.2 L (13.0-17.5) gm/dL Hct 33.9 L (39.0-53.0) % Neutrophils # 8.7 H (1.3-7.7) k/uL Lymphocytes # 0.7 L (1.0-4.8) k/uL Potassium 3.3 L (3.5-5.5) mmol/L Carbon Dioxide 21.2 L (21.6-31.8) mmol/L Anion Gap 13.80 H (4.00-12.00) mmol/L BUN/Creatinine Ratio 10.43 L (12.00-20.00) Ratio Calcium 6.5 L (8.7-10.3) mg/dL
[2023-11-02] MEDS: allopurinoL 100 MG TAB PO SCH (08:18)
[2023-11-02] MEDS: LEVOTHYROXINE 75 MCG TAB PO SCH (08:18)
[2023-11-02 11:20] LABS: Basophils # (A) 0.01 X 10*3/uL (0.00-0.10); Basophils % (A) 0.1 %; Eosinophils # (A) 0.05 X 10*3/uL (0.04-0.35); Eosinophils % (A) 0.6 %; HGB 12.2 g/dL (13.0-17.0); Lymphocytes # (A) 0.62 X 10*3/uL (0.90-5.00); Lymphocytes % (A) 7.3 %; MCH 29.2 pg (27.0-32.0); MCHC 32.1 g/dL (32.0-37.0); MCV 90.9 FL (80.0-97.0); Mean Platelet Volume 10.5 FL (9.5-12.2); Monocytes # (A) 0.58 X 10*3/uL (0.20-1.00); Monocytes % (A) 6.9 %; NRBC Per 100 WBC 0 X 10*3/uL (0.00-0.01); Neutrophils # (A) 7.16 X 10*3/uL (1.80-7.70); Neutrophils % (A) 84.7 %; Platelet Count 215 X 10*3/uL (140-440); RBC 4.18 X 10*6/uL (4.40-5.60); RDW 13.5 % (11.5-14.5); WBC 8.45 X 10*3/uL (4.50-10.00)
[2023-11-02 11:41] LABS: BUN/Creat Ratio 9.21 Ratio (12.00-20.00); Blood Urea Nitrogen 12.9 mg/dL (9.0-27.0); Calcium 7.4 mg/dL (8.7-10.3); Carbon Dioxide 21.6 mmol/L (21.6-31.8); Chloride 109 mmol/L (96-109); Glucose 113 mg/dL (70-110); Magnesium 1.4 mg/dL (1.5-2.4); Potassium 3.6 mmol/L (3.5-5.5); Sodium 145 mmol/L (135-145)
--- NOTE | 2023-11-02 11:51 | P.PN ---
Subjective Progress Note Date: 11/02/23 CHIEF COMPLAINT: Diverticulitis HISTORY OF PRESENT ILLNESS: Patient admitted to the hospital diverticulitis. Patient continues to have left lower quadrant abdominal pain. Afebrile. WBC 8.45 Hgb 12.2 platelets 215 sodium is 145 potassium is 3.6 creatinine 1.[address] scan abdomen pelvis reports sigmoid/descending colitis/diverticulitis with organizing fluid collection adjacent to the sigmoid colon measuring 48 x 31 mm. PHYSICAL EXAM: VITAL SIGNS: Reviewed. GENERAL: Well-developed in no acute distress. ABDOMEN: Soft. Nondistended. Tender with palpation left lower quadrant NEUROLOGIC: Alert and oriented. Cranial nerves II through XII grossly intact. ASSESSMENT: 1. Severe acute sigmoid diverticulitis now with fluid collection noted on CT 2. Prior history of diverticulitis 3. Hypokalemia improved 4. Hypomagnesemia PLAN: -Consult interventional radiology for drainage of fluid collection -Continue antibiotics -Replace magnesium -Continue clear liquid diet -Continue supportive care -Encourage patient to ambulate -Continue pain management -Continue to monitor Physician Core Man note has been reviewed by physician. Signing provider agrees with the documented findings, assessment, and plan of care. Objective - Vital Signs Vital signs: Vital Signs Temp 97.5 F L 11/02/23 07:26 Pulse 69 11/02/23 07:26 Resp 20 11/02/23 07:26 BP 125/77 11/02/23 07:26 Pulse Ox 99 11/02/23 07:26 FiO2 Intake & Output 11/01/23 11/02/23 11/02/23 18:59 06:59 18:59 Intake Total 1160 1000 Balance 1160 1000 Intake: Intake, IV Titration 1000 Amount Ampicillin-Sulbactam 3 gm 100 In Sodium Chloride 0.9% 100 ml @ 200 mls/hr IVPB Q8H JEY Rx#:[id number] Lactated Ringers 1,000 ml 900 @ 75 mls/hr IV .[id number] JEY Rx#:[id number] Oral 1160 Other: Voiding Method Toilet # Voids 2 # Bowel Movements 2 - Labs CBC & Chem 7: 11/02/23 07:16 11/02/23 07:16 Labs: Abnormal Lab Results - Last 24 Hours (Table) 11/02/23 11/02/23 Range/Units 07:16 07:16 RBC 4.18 L (4.40-5.60) X 10*6/uL Hgb 12.2 L (13.0-17.0) g/dL Hct 38.0 L (39.6-50.0) % Lymphocytes # 0.62 L (0.90-5.00) X 10*3/uL Anion Gap 14.40 H (4.00-12.00) mmol/L BUN/Creatinine Ratio 9.21 L (12.00-20.00) Ratio Glucose 113 H (70-110) mg/dL Calcium 7.4 L (8.7-10.3) mg/dL Magnesium 1.4 L (1.5-2.4) mg/dL
[2023-11-02] MEDS: MAGNESIUM SULFATE-D5W PMX 1 GM in DEXTROSE/WATER 1 100ML.BAG IVPB SCH (13:08)
[2023-11-02] MEDS: POTASSIUM PHOSPHATE 10 MMOL in SODIUM CHLORIDE 0.9% 250 ML IV ONE (13:23)
[2023-11-02] MEDS: HYDROcodone/APAP 5-325MG 1 EACH TAB PO PRN (21:29)
--- NOTE | 2023-11-03 06:09 | P.PN ---
Subjective Progress Note Date: 11/02/23 53-year-old male, history of hypertension, hyperlipidemia, hypothyroidism, diabetes mellitus, presents to the ER for evaluation abdominal pain severe abdominal pain left-sided abdominal pain. Patient has persistent nausea without vomiting since significant nausea without vomiting with history of dive rticulitis and this feels similar. He reports he was first diagnosed with diverticulitis in 1995. But since then he had a break in how often he was having diverticulitis. But recently it has been almost every 6 months that he has a flareup and requires antibiotics. This is his third flareup since April. This is his first hospitalization for diverticulitis. Last colonoscopy was a year ago and he reports that reported extensive diverticulosis. Patient does have a history of kidney transplant and bilateral nephrectomy for polycystic kidney disease. Patient reports that yesterday after lunch he had severe left lower quadrant abdominal pain. Blood work completed in ED reveals a WBC of 15.1, hemoglobin of 13.2 and platelet count of 172, sodium 138, potassium 3.9, BUN/creatinine of 30/1.63 and blood glucose of 150, lactic acid of 1.2 CT of the abdomen and pelvis is positive for significant severe diverticulitis 10/31/2023 Patient is seen and evaluated in room at bedside; family members are present in the room; continues to report significant pain on left upper and lower quadrant Vital signs reviewed reveal temperature of 98.3, pulse 69, respirate 17 and blood pressure 115/67 Lab review shows sodium of 141, potassium 3.7, BUNs/creatinine of 19/1.6; CBC is pending Patient is currently on a clear liquid diet; continue IV antibiotics in form of IV Unasyn Surgery on board and recommending to continue current management at this time 11/01/2023 Patient is seen in follow-up today being followed by general surgery maintained on antibiotics for diverticulitis. Patient is continued on IV Unasyn along with IV hydration currently maintained on clear liquids. Patient is afebrile and white count has normalized and patient is requesting when he can go home. Patient continues to report pain and is continued on IV pain medications. No reports of chest pain or shortness of breath and patient has been encouraged to increase activity as tolerated. Potassium is 3.3 and will replace per protocol and follow-up on repeat labs. Calcium on the lower side as well and will give a dose of calcium. Patient does take calcium outpatient chronically and patient remains on antirejection meds as patient has a solitary right kidney. Patient reports he has had multiple episodes of acute diverticulitis outpatient which has been treated with family practice provider. Patient has never been hospitalized for this. Given patient's continued pain, surgery has ordered a repeat CT abdomen for evaluation. Encouraged to increase activity as tolerated and frequent walking around the halls. All medications reviewed and resumed as appropriate 11/02/2023 Patient seen and evaluated in follow-up continues on antibiotics with general surgery following. Patient underwent repeat CT abdomen showing sigmoid/descending colitis diverticulitis with a possible organizing fluid collection adjacent to the sigmoid colon. Interventional radiology has been consulted for evaluation of possible abscess drainage or drainage tube placement. Patient is a transplant patient and in the event patient would need surgery patient prefers to go to [facility] where his transplant team is for further evaluation. Patient's potassium was replaced and improved at 3.6 and will dose per protocol. Magnesium noted to be low at 1.4 and will as well. Patient is continued on clear liquids and general surgery considering advancing. Patient encouraged to increase activity as tolerated taking with frequent walking in the halls. Review of systems: Constitutional: No reports of fatigue, fever, or chills Cardiovascular: No reports of chest pain or palpitations Respiratory: No reports of shortness of breath or cough GI: No reports of nausea, vomiting, or diarrhea, reports continued abdominal pain : No reports of dysuria or retention Neurovascular: No reports of weakness or numbness All medications have been reviewed Physical exam: Gen: This is a 53-year-old male who is awake, alert and oriented x 3, well- developed, well-nourished HEENT: Head is atraumatic, normocephalic. Pupils equal, round. Sclerae is anicteric. NECK: Supple. No JVD. No lymphadenopathy. No thyromegaly. LUNGS: Clear to auscultation. No wheezes or rhonchi. No intercostal retractions. HEART: Regular rate and rhythm. No murmur. ABDOMEN: Soft. Tender on palpation. Bowel sounds are present. No masses. EXTREMITIES: No pedal edema. No calf tenderness. NEUROLOGICAL: Patient is awake, alert and oriented x3. Cranial nerves 2 through 12 are grossly intact. Assessment: -Severe acute diverticulitis -Hypomagnesemia; being replaced -Hypertension; currently not on any antihypertensive therapy -Hyperlipidemia -Hypothyroidism -History of renal transplant; has a solitary right kidney, continues on antire jection medications -GI prophylaxis -DVT prophylaxis; SCDs/subcu heparin -full code Plan: Patient is currently continued on gentle IV hydration along with antibiotics in the form of Unasyn with general surgery following. Patient has been started on clear liquids and tolerating thus far although continues to report abdominal pain. Repeat CT abdomen as mentioned above with concerns of possible fluid collection. Interventional radiology was consulted and reported there is not a fluid collection containing bautista where a drain could be placed. If the patient is requiring surgery, patient and family would like to go where his transplant team is at [facility] Encouraged continued increased activity as tolerated and frequent walking around the halls Potassium 3.5 today and will give a dose and calcium slightly low although improved. Magnesium low at 1's per protocol Home medications discussed with patient and reviewed and resumed as appropriate Will follow-up with repeat labs in the a.m. Prognosis is guarded The impression and plan of care has been dictated by Perla Santos, Nurse Practitioner as directed. Dr. Ruben MD I have performed a history and examination and MDM of this patient, discussed the same with the dictator, and agree with the dictator's assessment and plan as written ,documented as a scribe. Based on total visit time, I have performed more than 50% of the visit. Objective - Vital Signs Vital signs: Vital Signs Temp 97.8 F 11/03/23 01:14 Pulse 60 11/03/23 01:14 Resp 18 11/03/23 01:14 BP 115/77 11/03/23 01:14 Pulse Ox 97 11/03/23 01:14 FiO2 Intake & Output 11/02/23 11/02/23 11/03/23 06:59 18:59 06:59 Intake Total 1000 Balance 1000 Intake: Intake, IV Titration 1000 Amount Ampicillin-Sulbactam 3 gm 100 In Sodium Chloride 0.9% 100 ml @ 200 mls/hr IVPB Q8H JEY Rx#:[id number] Lactated Ringers 1,000 ml 900 @ 75 mls/hr IV .[id number] JEY Rx#:[id number] Other: Voiding Method Toilet Toilet - Labs CBC & Chem 7: 11/02/23 07:16 11/02/23 07:16 Labs: Abnormal Lab Results - Last 24 Hours (Table) 11/02/23 11/02/23 Range/Units 07:16 07:16 RBC 4.18 L (4.40-5.60) X 10*6/uL Hgb 12.2 L (13.0-17.0) g/dL Hct 38.0 L (39.6-50.0) % Lymphocytes # 0.62 L (0.90-5.00) X 10*3/uL Anion Gap 14.40 H (4.00-12.00) mmol/L BUN/Creatinine Ratio 9.21 L (12.00-20.00) Ratio Glucose 113 H (70-110) mg/dL Calcium 7.4 L (8.7-10.3) mg/dL Magnesium 1.4 L (1.5-2.4) mg/dL
[2023-11-03 11:52] LABS: Basophils # (A) 0.03 X 10*3/uL (0.00-0.10); Basophils % (A) 0.3 %; Eosinophils # (A) 0.05 X 10*3/uL (0.04-0.35); Eosinophils % (A) 0.5 %; HCT 39.9 % (39.6-50.0); HGB 12.9 g/dL (13.0-17.0); Lymphocytes # (A) 0.83 X 10*3/uL (0.90-5.00); Lymphocytes % (A) 9.1 %; MCH 28.7 pg (27.0-32.0); MCHC 32.3 g/dL (32.0-37.0); MCV 88.9 FL (80.0-97.0); Mean Platelet Volume 10.2 FL (9.5-12.2); Monocytes # (A) 0.61 X 10*3/uL (0.20-1.00); Monocytes % (A) 6.7 %; NRBC Per 100 WBC 0 X 10*3/uL (0.00-0.01); Neutrophils # (A) 7.59 X 10*3/uL (1.80-7.70); Platelet Count 251 X 10*3/uL (140-440); RBC 4.49 X 10*6/uL (4.40-5.60); RDW 13.6 % (11.5-14.5); WBC 9.15 X 10*3/uL (4.50-10.00)
[2023-11-03 12:14] LABS: Magnesium 1.7 mg/dL (1.5-2.4)
[2023-11-03 12:18] LABS: ALT 17 U/L (10-49); AST 14 U/L (14-35); Albumin 3.8 g/dL (3.8-4.9); Albumin/Globulin Ratio 1.81 Ratio (1.60-3.17); Alkaline Phosphatase 62 U/L (41-126); BUN/Creat Ratio 9.13 Ratio (12.00-20.00); Blood Urea Nitrogen 13.7 mg/dL (9.0-27.0); Calcium 7.2 mg/dL (8.7-10.3); Carbon Dioxide 21.4 mmol/L (21.6-31.8); Chloride 109 mmol/L (96-109); Globulin 2.1 g/dL (1.6-3.3); Glucose 106 mg/dL (70-110); Potassium 3.9 mmol/L (3.5-5.5); Sodium 145 mmol/L (135-145); Total Bilirubin 0.5 mg/dL (0.3-1.2); Total Protein 5.9 g/dL (6.2-8.2)
--- NOTE | 2023-11-03 15:37 | P.PN ---
Subjective Progress Note Date: 11/03/23 CHIEF COMPLAINT: Diverticulitis HISTORY OF PRESENT ILLNESS: Patient admitted to the hospital diverticulitis with fluid collection. Not drainable per IR service. Patient continues to have pain on the left side. He is tolerating the full liquids. Diarrhea has resolved. Denies any nausea or vomiting. Patient seen by infectious disease. Antibiotics adjusted. WBC 9.15 magnesium up from 1.4-1.7 PHYSICAL EXAM: VITAL SIGNS: Reviewed. GENERAL: Well-developed in no acute distress. ABDOMEN: Soft. Nondistended. Tender with palpation left lower quadrant NEUROLOGIC: Alert and oriented. Cranial nerves II through XII grossly intact. ASSESSMENT: 1. Severe acute sigmoid diverticulitis now with fluid collection noted on CT 2. Prior history of diverticulitis 3. Hypokalemia improved 4. Hypomagnesemia PLAN: -Consult placed for infectious disease. Antibiotic management per infectious disease -Continue antibiotics -Continue full liquid diet -Continue supportive care -Encourage patient to ambulate -Continue pain management -Continue to monitor Physician Pig Furnace Operator note has been reviewed by physician. Signing provider agrees with the documented findings, assessment, and plan of care. Objective - Vital Signs Vital signs: Vital Signs Temp 98.1 F 11/03/23 12:05 Pulse 60 11/03/23 12:05 Resp 18 11/03/23 12:05 BP 117/60 11/03/23 12:05 Pulse Ox 99 11/03/23 12:05 FiO2 Intake & Output 11/02/23 11/03/23 11/03/23 18:59 06:59 18:59 Other: Voiding Method Toilet Toilet # Voids 4 - Labs CBC & Chem 7: 11/03/23 07:17 11/03/23 07:17 Labs: Abnormal Lab Results - Last 24 Hours (Table) 11/03/23 11/03/23 Range/Units 07:17 07:17 Hgb 12.9 L (13.0-17.0) g/dL Lymphocytes # 0.83 L (0.90-5.00) X 10*3/uL Carbon Dioxide 21.4 L (21.6-31.8) mmol/L Anion Gap 14.60 H (4.00-12.00) mmol/L Est GFR (CKD-EPI) 56 L (>=60) BUN/Creatinine Ratio 9.13 L (12.00-20.00) Ratio Calcium 7.2 L (8.7-10.3) mg/dL Total Protein 5.9 L (6.2-8.2) g/dL
[2023-11-03] MEDS: PIPERACILLIN-TAZOBACTAM 3.375 GM in SODIUM CHLORIDE 0.9% 100 ML IVPB SCH (16:04)
[2023-11-03] MEDS: SODIUM CHLORIDE 0.9% 1,000 ML IV SCH (17:18)
--- NOTE | 2023-11-03 23:17 | P.CONS ---
History of Present Illness - Reason for Consult Consult date: 11/03/23 Diverticulitis Requesting physician: Brandy Lopes - Chief Complaint Abdominal pain X few days - History of Present Illness Patient is a 53-year-old male with a past medical history significant for diabetes mellitus hypertension hyperlipidemia osteoarthritis patient did have a history of living related kidney transplant in 2015 and the patient is currently on immunosuppressive medication patient presenting to the hospital 5 days ago on 10/29/2023 for evaluation of abdominal pain patient symptoms started a day before presentation to the hospital and was almost 10 out of 10 mostly in the left lower quadrant area without any radiation patient on presentation to the hospital did have a fever of 100 F patient was not tachycardic or hypotensive not hypoxic did have a white count of 14,000 creatinine was mildly elevated subsequently normalized liver enzymes are normal patient initial CT abdominal pelvis uncomplicated acute diverticulitis in the proximal sigmoid colon patient has been admitted to the hospital and has been treated with the Unasyn patient did have repeat CT abdominal pelvis completed last evening which now shows sigmoid and descending colitis diverticulitis with adjacent organizing fluid collection 4.8X 3.1 cm, infectious disease was consulted today for further management of antibiotic therapy, patient currently denies having any fever or any chills denies any headache or URI symptoms no chest pain shortness of breath, cough no nausea no vomiting abdominal pain has decreased intensity did have some loose stools no hematochezia Review of Systems Positive point and negatives has been mentioned in the HPI, complete review of systems was performed and all other systems are negative Past Medical History Past Medical History: Chest Pain / Angina, Diabetes Mellitus, Hyperlipidemia, Hypertension, Osteoarthritis (OA), Sleep Apnea/CPAP/BIPAP, Thyroid Disorder Additional Past Medical History / Comment(s): Seasonal Allergies. No treatment needed for Diabetes, just watching levels. Hypertension resolved after kidney transplant. CPAP use. History of Any Multi-Drug Resistant Organisms: None Reported Past Surgical History: Orthopedic Surgery Additional Past Surgical History / Comment(s): Bilateral Neprectomy, right kidney transplant 04/2016, parathyroidectomy, colonoscopy, liopma removed from left posterior shoulder, left knee arthroscopy, lumbar puncture, bilateral optic sheath surgery, bilateral cataracts removed, lipoma removed from left posterior neck. Past Anesthesia/Blood Transfusion Reactions: Motion Sickness, Postoperative Nausea & Vomiting (PONV) Past Psychological History: Anxiety Smoking Status: Never smoker Past Alcohol Use History: Occasional Past Drug Use History: None Reported - Past Family History Mother Family Medical History: No Reported History Medications and Allergies Home Medications Medication Instructions Recorded Confirmed Type Atorvastatin [Lipitor] 40 mg PO HS 11/26/21 10/29/23 History Azelastine HCl [Astepro] 2 spray NASAL DAILY 11/26/21 10/29/23 History Calcium Acetate [PhosLo] 1,334 mg PO TID-W/MEALS 11/26/21 10/29/23 History Calcium Carbonate [Tums] 2,000 mg PO QAM 11/26/21 10/29/23 History Famotidine [Pepcid] 20 mg PO HS 11/26/21 10/29/23 History Fluticasone Propionate [Flonase 2 spray EA NOSTRIL DAILY 11/26/21 10/29/23 History Allergy Relief] Folic Acid 0.4 mg PO BID 11/26/21 10/29/23 History Hydrocortisone [Cortef] 10 mg PO BID 11/26/21 10/29/23 History Hyoscyamine Sulfate [Levsin] 0.125 mg PO TID-W/MEALS 11/26/21 10/29/23 History Levothyroxine Sodium [Synthroid] 75 mcg PO QAM 11/26/21 10/29/23 History Loperamide HCl [Imodium A-D] 2 mg PO DAILY 11/26/21 10/29/23 History Loratadine [Claritin] 10 mg PO DAILY 11/26/21 10/29/23 History Magnesium Oxide [Mag-Ox] 400 mg PO QAM 11/26/21 10/29/23 History Multivitamins, Thera [Multivitamin 1 tab PO QAM 11/26/21 10/29/23 History (formulary)] [place]-3 Fatty Acids/Fish Oil [Fish 1 cap PO BID 11/26/21 10/29/23 History Oil 1,000 mg Softgel] Tacrolimus [Prograf] 3 mg PO Q12H 11/26/21 10/29/23 History Vitamin E (Dl,Tocopheryl Acet) 400 unit PO QAM 11/26/21 10/29/23 History [Vitamin E (400 Iu = 180 mg)] acetaZOLAMIDE [Diamox] 500 mg PO BID 11/26/21 10/29/23 History allopurinoL [Zyloprim] 200 mg PO DAILY 11/26/21 10/29/23 History calcitrioL 0.25 mcg PO BID 11/26/21 10/29/23 History minoxidiL [Rogaine] 1 applic TOPICAL BID 11/26/21 10/29/23 History mycophenolate mofetiL [Cellcept] 750 mg PO BID 11/26/21 10/29/23 History Midodrine [ProAmatine] 10 mg PO TID 10/29/23 10/29/23 History Sertraline [Zoloft] 150 mg PO HS 10/29/23 10/29/23 History Acetaminophen Tab [Tylenol] 650 mg PO Q6H #30 tab 11/05/23 Rx Fludrocortisone [Florinef] 0.1 mg PO DAILY 11/05/23 11/05/23 History HYDROcodone/APAP 5-325MG [[place] 1 tab PO Q6HR PRN 3 Days #9 tab 11/05/23 Rx 5-325] Ibuprofen [Motrin] 600 mg PO Q6HR PRN #40 tab 11/05/23 Rx oxyCODONE HCL [OxyIR] 5 mg PO Q6H PRN 3 Days #10 tab 11/05/23 Rx Allergies Allergy/AdvReac Type Severity Reaction Status Date / Time doxycycline AdvReac Nausea & Verified 10/29/23 07:43 Vomiting & Diarrhea Physical Exam Vitals: Vital Signs Temp Pulse Resp BP Pulse Ox 11/03/23 07:43 97.3 F L 69 18 119/71 94 L 11/03/23 01:14 97.8 F 60 18 115/77 97 11/02/23 19:14 98.0 F 78 18 96/56 95 11/02/23 13:10 97.5 F L 58 L 16 130/83 97 Intake and Output 11/02/23 11/03/23 11/03/23 22:59 06:59 14:59 Other: Voiding Method Toilet # Voids 4 GENERAL DESCRIPTION: Middle-aged male lying in bed, no distress. No tachypnea or accessory muscle of respiration use. HEENT: Shows Pallor , no scleral icterus. Oral mucous membrane is dry. No pharyngeal erythema or thrush NECK: Trachea central, no thyromegaly. LUNGS: Unlabored breathing. Clear to auscultation anteriorly. No wheeze or crackle. HEART: S1, S2, regular rate and rhythm. No loud murmur ABDOMEN: Soft, left-sided tenderness , no guarding or rigidity EXTREMITIES: No edema of feet. SKIN: No rash, NEUROLOGICAL: The patient is awake, alert, oriented x3, mood and affect normal. Results CBC & Chem 7: 11/04/23 06:02 11/04/23 06:02 Labs: Abnormal Lab Results - Last 24 Hours (Table) 11/02/23 11/02/23 Range/Units 07:16 07:16 RBC 4.18 L (4.40-5.60) X 10*6/uL Hgb 12.2 L (13.0-17.0) g/dL Hct 38.0 L (39.6-50.0) % Lymphocytes # 0.62 L (0.90-5.00) X 10*3/uL Anion Gap 14.40 H (4.00-12.00) mmol/L BUN/Creatinine Ratio 9.21 L (12.00-20.00) Ratio Glucose 113 H (70-110) mg/dL Calcium 7.4 L (8.7-10.3) mg/dL Magnesium 1.4 L (1.5-2.4) mg/dL Assessment and Plan (1) Sepsis Status: Acute Code(s): A41.9 - SEPSIS, UNSPECIFIED ORGANISM SNOMED Code(s): 17346508 (2) Diverticulitis of large intestine with complication Status: Acute Code(s): K57.32 - DVTRCLI OF LG INT W/O PERFORATION OR ABSCESS W/O BLEEDING SNOMED Code(s): 275775430 (3) Intra-abdominal abscess Status: Acute Code(s): K65.1 - PERITONEAL ABSCESS SNOMED Code(s): 10177730 (4) Kidney transplant recipient Status: Acute Code(s): Z94.0 - KIDNEY TRANSPLANT STATUS SNOMED Code(s): 056894103 Plan: 1patient with admission to the hospital with sepsis in this patient who did have a fever elevated white count source was acute uncomplicated diverticulitis in this patient so seem to have shown failure of medical therapy as tolerated to have worsening of diverticulitis with evidence of perforation and abscess likely failing Unasyn therapy 2-patient with a history of renal transplant on immunosuppressive medication 3-patient benefit from IR drainage of this abscess to decrease the burden of infection and to get specimen for culture 4-we will discontinue Unasyn 5-start the patient on Zosyn 3.375 g every 8 hours Multiple question concern on outside We will follow on clinical condition and cultures to further adjust medication if needed Thank you for this consultation we will follow the patient along with you Dictation was produced using [employer] dictation software. please excuse any grammatical, word or spelling errors. Time with Patient: Greater than 30
--- NOTE | 2023-11-04 07:11 | P.PN ---
Subjective Progress Note Date: 11/03/23 53-year-old male, history of hypertension, hyperlipidemia, hypothyroidism, diabetes mellitus, presents to the ER for evaluation abdominal pain severe abdominal pain left-sided abdominal pain. Patient has persistent nausea without vomiting since significant nausea without vomiting with history of dive rticulitis and this feels similar. He reports he was first diagnosed with diverticulitis in 1995. But since then he had a break in how often he was having diverticulitis. But recently it has been almost every 6 months that he has a flareup and requires antibiotics. This is his third flareup since April. This is his first hospitalization for diverticulitis. Last colonoscopy was a year ago and he reports that reported extensive diverticulosis. Patient does have a history of kidney transplant and bilateral nephrectomy for polycystic kidney disease. Patient reports that yesterday after lunch he had severe left lower quadrant abdominal pain. Blood work completed in ED reveals a WBC of 15.1, hemoglobin of 13.2 and platelet count of 172, sodium 138, potassium 3.9, BUN/creatinine of 30/1.63 and blood glucose of 150, lactic acid of 1.2 CT of the abdomen and pelvis is positive for significant severe diverticulitis 10/31/2023 Patient is seen and evaluated in room at bedside; family members are present in the room; continues to report significant pain on left upper and lower quadrant Vital signs reviewed reveal temperature of 98.3, pulse 69, respirate 17 and blood pressure 115/67 Lab review shows sodium of 141, potassium 3.7, BUNs/creatinine of 19/1.6; CBC is pending Patient is currently on a clear liquid diet; continue IV antibiotics in form of IV Unasyn Surgery on board and recommending to continue current management at this time 11/01/2023 Patient is seen in follow-up today being followed by general surgery maintained on antibiotics for diverticulitis. Patient is continued on IV Unasyn along with IV hydration currently maintained on clear liquids. Patient is afebrile and white count has normalized and patient is requesting when he can go home. Patient continues to report pain and is continued on IV pain medications. No reports of chest pain or shortness of breath and patient has been encouraged to increase activity as tolerated. Potassium is 3.3 and will replace per protocol and follow-up on repeat labs. Calcium on the lower side as well and will give a dose of calcium. Patient does take calcium outpatient chronically and patient remains on antirejection meds as patient has a solitary right kidney. Patient reports he has had multiple episodes of acute diverticulitis outpatient which has been treated with family practice provider. Patient has never been hospitalized for this. Given patient's continued pain, surgery has ordered a repeat CT abdomen for evaluation. Encouraged to increase activity as tolerated and frequent walking around the halls. All medications reviewed and resumed as appropriate 11/02/2023 Patient seen and evaluated in follow-up continues on antibiotics with general surgery following. Patient underwent repeat CT abdomen showing sigmoid/descending colitis diverticulitis with a possible organizing fluid collection adjacent to the sigmoid colon. Interventional radiology has been consulted for evaluation of possible abscess drainage or drainage tube placement. Patient is a transplant patient and in the event patient would need surgery patient prefers to go to [facility] where his transplant team is for further evaluation. Patient's potassium was replaced and improved at 3.6 and will dose per protocol. Magnesium noted to be low at 1.4 and will as well. Patient is continued on clear liquids and general surgery considering advancing. Patient encouraged to increase activity as tolerated taking with frequent walking in the halls. 11/03/2023 Patient is seen in follow-up today being continued on antibiotics with general surgery following. Interventional radiology was consulted with request for possible drainage or drainage tube with noted fluid collection on the CT. After review with Dr. Ivan there is no wall or fluid collection at this time to obtain aspiration or drainage tube placement. Infectious disease was consulted and recommending interventional radiology aspiration as well to determine appropriate discharge antibiotics and relief as patient is continued to be with symptomatic pain. Patient with potassium and magnesium low supplementing and was given a dose of calcium as well for low calcium. Patient has been up and walking reporting continued pain has been increased and diet per surgery to full liquids and tolerating. Patient reports to having bowel movements and urinating with no difficulties. Patient will likely need IV antibiotics on discharge given the extent of the diverticulitis and will discuss with social work regarding verification of coverage. Patient is afebrile with no white count denies chest pain or shortness of breath. Patient is extremely anxious and wanting to go home. Will discuss with other consultations regarding treatment plan moving forward. Review of systems: Constitutional: No reports of fatigue, fever, or chills Cardiovascular: No reports of chest pain or palpitations Respiratory: No reports of shortness of breath or cough GI: No reports of nausea, vomiting, or diarrhea, reports continued abdominal pain : No reports of dysuria or retention Neurovascular: No reports of weakness or numbness All medications have been reviewed Physical exam: Gen: This is a 53-year-old male who is awake, alert and oriented x 3, well- developed, well-nourished HEENT: Head is atraumatic, normocephalic. Pupils equal, round. Sclerae is anicteric. NECK: Supple. No JVD. No lymphadenopathy. No thyromegaly. LUNGS: Clear to auscultation. No wheezes or rhonchi. No intercostal retractions. HEART: Regular rate and rhythm. No murmur. ABDOMEN: Soft. Tender on palpation. Bowel sounds are present. No masses. EXTREMITIES: No pedal edema. No calf tenderness. NEUROLOGICAL: Patient is awake, alert and oriented x3. Cranial nerves 2 through 12 are grossly intact. Assessment: -Severe acute diverticulitis -Hypomagnesemia; being replaced -Hypertension; currently not on any antihypertensive therapy -Hyperlipidemia -Hypothyroidism -History of renal transplant; has a solitary right kidney, continues on antirejection medications -GI prophylaxis -DVT prophylaxis; SCDs/subcu heparin -full code Plan: Patient is currently continued on gentle IV hydration along with antibiotics in the form of Unasyn with general surgery following. Patient has been started on full liquids and tolerating thus far although continues to report abdominal pain. Repeat CT abdomen as mentioned above with concerns of possible fluid collection. Interventional radiology was consulted and reported there is not a fluid collection containing bautista where a drain could be placed. Discussed again with interventional radiology about possible aspiration for symptomatic relief as well as culture analysis and per Dr. Ivan there is no collection to aspirate and does not recommend doing this at this time. Also reported if there becomes an abscess or wall formation then we will proceed with aspiration. If the patient is requiring surgery, patient and family would like to go where his transplant team is at [facility] Social work consulted as patient will likely require IV antibiotic therapy and infectious disease was consulted and appreciate input and recommendations. ID recommends aspiration for proper analysis to determine discharge antibiotics. Encouraged continued increased activity as tolerated and frequent walking around the halls A.m. labs pending and will replace per protocol Home medications discussed with patient and reviewed and resumed as appropriate Prognosis is guarded The impression and plan of care has been dictated by Perla Santos, Nurse Practitioner as directed. Dr. Ruben MD I have performed a history and examination and MDM of this patient, discussed the same with the dictator, and agree with the dictator's assessment and plan as written ,documented as a scribe. Based on total visit time, I have performed more than 50% of the visit. Objective - Vital Signs Vital signs: Vital Signs Temp 97.3 F L 11/03/23 07:43 Pulse 69 11/03/23 07:43 Resp 18 11/03/23 07:43 BP 119/71 11/03/23 07:43 Pulse Ox 94 L 11/03/23 07:43 FiO2 Intake & Output 11/02/23 11/03/23 11/03/23 18:59 06:59 18:59 Other: Voiding Method Toilet # Voids 4 - Labs CBC & Chem 7: 11/03/23 07:17 11/03/23 07:17 Labs: Abnormal Lab Results - Last 24 Hours (Table) 11/02/23 11/02/23 Range/Units 07:16 07:16 RBC 4.18 L (4.40-5.60) X 10*6/uL Hgb 12.2 L (13.0-17.0) g/dL Hct 38.0 L (39.6-50.0) % Lymphocytes # 0.62 L (0.90-5.00) X 10*3/uL Anion Gap 14.40 H (4.00-12.00) mmol/L BUN/Creatinine Ratio 9.21 L (12.00-20.00) Ratio Glucose 113 H (70-110) mg/dL Calcium 7.4 L (8.7-10.3) mg/dL Magnesium 1.4 L (1.5-2.4) mg/dL
[2023-11-04 08:31] LABS: Basophils # (A) 0.01 X 10*3/uL (0.00-0.10); Basophils % (A) 0.1 %; Eosinophils # (A) 0.08 X 10*3/uL (0.04-0.35); Eosinophils % (A) 0.9 %; HCT 38.6 % (39.6-50.0); HGB 12.4 g/dL (13.0-17.0); Lymphocytes # (A) 1.16 X 10*3/uL (0.90-5.00); Lymphocytes % (A) 12.5 %; MCH 28.6 pg (27.0-32.0); MCHC 32.1 g/dL (32.0-37.0); MCV 88.9 FL (80.0-97.0); Mean Platelet Volume 9.9 FL (9.5-12.2); Monocytes # (A) 0.55 X 10*3/uL (0.20-1.00); Monocytes % (A) 5.9 %; NRBC Per 100 WBC 0 X 10*3/uL (0.00-0.01); Neutrophils # (A) 7.44 X 10*3/uL (1.80-7.70); Neutrophils % (A) 80.2 %; Platelet Count 240 X 10*3/uL (140-440); RBC 4.34 X 10*6/uL (4.40-5.60); RDW 13.4 % (11.5-14.5); WBC 9.28 X 10*3/uL (4.50-10.00)
[2023-11-04 08:54] LABS: BUN/Creat Ratio 8.94 Ratio (12.00-20.00); Blood Urea Nitrogen 15.2 mg/dL (9.0-27.0); Calcium 7.3 mg/dL (8.7-10.3); Carbon Dioxide 20.9 mmol/L (21.6-31.8); Chloride 110 mmol/L (96-109); Glucose 104 mg/dL (70-110); Magnesium 1.6 mg/dL (1.5-2.4); Potassium 4.4 mmol/L (3.5-5.5); Sodium 144 mmol/L (135-145)
[2023-11-04] MEDS ORDERED: Magnesium Replacement Protocol 1 EACH MISC MISCELLANE PRN (10:26)
[2023-11-04] MEDS: MAGNESIUM SULFATE-D5W PMX 1 GM in DEXTROSE/WATER 1 100ML.BAG IVPB SCH (11:03)
--- NOTE | 2023-11-04 13:21 | P.PN ---
Subjective Progress Note Date: 11/04/23 CHIEF COMPLAINT: Diverticulitis HISTORY OF PRESENT ILLNESS: Patient admitted to the hospital diverticulitis with fluid collection. Not drainable per IR service. Patient reports that his left- sided pain is starting to decrease. He rates his pain about a 3 out of 10. He denies any nausea or vomiting. Afebrile. WBC 9.28. Antibiotics per ID were adjusted yesterday PHYSICAL EXAM: VITAL SIGNS: Reviewed. GENERAL: Well-developed in no acute distress. ABDOMEN: Soft. Nondistended. Tender with palpation left lower quadrant NEUROLOGIC: Alert and oriented. Cranial nerves II through XII grossly intact. ASSESSMENT: 1. Severe acute sigmoid diverticulitis now with fluid collection noted on CT 2. Prior history of diverticulitis PLAN: -Continue antibiotics per ID service -Continue full liquid diet -Continue pain management -Continue supportive care -Encourage patient to ambulate -Continue to monitor Physician Computer Console Operator note has been reviewed by physician. Signing provider agrees with the documented findings, assessment, and plan of care. Objective - Vital Signs Vital signs: Vital Signs Temp 97.8 F 11/04/23 12:30 Pulse 54 L 11/04/23 12:30 Resp 16 11/04/23 12:30 BP 143/84 11/04/23 12:30 Pulse Ox 99 11/04/23 12:30 FiO2 Intake & Output 11/03/23 11/04/23 11/04/23 18:59 06:59 18:59 Intake Total 800 Balance 800 Intake: Intake, IV Titration 800 Amount Ampicillin-Sulbactam 3 gm 100 In Sodium Chloride 0.9% 100 ml @ 200 mls/hr IVPB Q8H [facility] Rx#:[id number] Lactated Ringers 1,000 ml 600 @ 75 mls/hr IV .[id number] JE[facility] Rx#:[id number] Piperacillin-Tazobactam 3 100 .375 gm In Sodium Chloride 0.9% 100 ml @ 25 mls/hr IVPB Q8HR JE[facility] Rx# :[id number] Other: Voiding Method Toilet Toilet Toilet # Voids 4 - Labs CBC & Chem 7: 11/04/23 06:02 11/04/23 06:02 Labs: Abnormal Lab Results - Last 24 Hours (Table) 11/04/23 11/04/23 Range/Units 06:02 06:02 RBC 4.34 L (4.40-5.60) X 10*6/uL Hgb 12.4 L (13.0-17.0) g/dL Hct 38.6 L (39.6-50.0) % Chloride 110 H (96-109) mmol/L Carbon Dioxide 20.9 L (21.6-31.8) mmol/L Anion Gap 13.10 H (4.00-12.00) mmol/L Creatinine 1.7 H (0.6-1.5) mg/dL Est GFR (CKD-EPI) 48 L (>=60) BUN/Creatinine Ratio 8.94 L (12.00-20.00) Ratio Calcium 7.3 L (8.7-10.3) mg/dL
--- NOTE | 2023-11-04 15:34 | P.PN ---
Subjective Progress Note Date: 11/04/23 Principal diagnosis: Reason for follow-up is complicated diverticulitis with abscess Patient is a 53-year-old male with a past medical history significant for diabetes mellitus hypertension hyperlipidemia osteoarthritis patient did have a history of living related kidney transplant in 2016 and the patient is currently on immunosuppressive medication, patient now has been on dialysis and never have a permacatheter or fistula placement presented to hospital abdominal pain has been diagnosed with diverticulitis with a repeat CAT scan now showing evidence of perforation and peridiverticular abscess which cannot be drained CT- guided. On today's visit that is 11/04/2023,the patient remains to be afebrile, patient is on room air not requiring supplemental oxygen and denies any shortness of breath no chest pain or cough.Patient denies having any nausea or vomiting, still have some left-sided abdominal pain but no worsening. Patient white count is 9.28, creatinine is 1.7 Objective - Vital Signs Vital signs: Vital Signs Temp 97.8 F 11/04/23 12:30 Pulse 54 L 11/04/23 12:30 Resp 16 11/04/23 12:30 BP 143/84 11/04/23 12:30 Pulse Ox 99 11/04/23 12:30 FiO2 Intake & Output 11/03/23 11/04/23 11/04/23 18:59 06:59 18:59 Intake Total 800 Balance 800 Intake: Intake, IV Titration 800 Amount Ampicillin-Sulbactam 3 gm 100 In Sodium Chloride 0.9% 100 ml @ 200 mls/hr IVPB Q8H JE[facility] Rx#:[id number] Lactated Ringers 1,000 ml 600 @ 75 mls/hr IV .[id number] JE[facility] Rx#:[id number] Piperacillin-Tazobactam 3 100 .375 gm In Sodium Chloride 0.9% 100 ml @ 25 mls/hr IVPB Q8HR JE[facility] Rx# :[id number] Other: Voiding Method Toilet Toilet Toilet # Voids 4 - Exam GENERAL DESCRIPTION: Middle-age male lying in bed in no distress RESPIRATORY SYSTEM: Unlabored breathing , decreased breath sounds at bases HEART: S1 S2 regular rate and rhythm , ABDOMEN: Soft , left-sided tenderness EXTREMITIES: No edema feet - Labs CBC & Chem 7: 11/04/23 06:02 11/04/23 06:02 Labs: Abnormal Lab Results - Last 24 Hours (Table) 11/04/23 11/04/23 Range/Units 06:02 06:02 RBC 4.34 L (4.40-5.60) X 10*6/uL Hgb 12.4 L (13.0-17.0) g/dL Hct 38.6 L (39.6-50.0) % Chloride 110 H (96-109) mmol/L Carbon Dioxide 20.9 L (21.6-31.8) mmol/L Anion Gap 13.10 H (4.00-12.00) mmol/L Creatinine 1.7 H (0.6-1.5) mg/dL Est GFR (CKD-EPI) 48 L (>=60) BUN/Creatinine Ratio 8.94 L (12.00-20.00) Ratio Calcium 7.3 L (8.7-10.3) mg/dL Assessment and Plan (1) Diverticulitis of large intestine with complication Current Visit: Yes Status: Acute Code(s): K57.32 - DVTRCLI OF LG INT W/O PERFORATION OR ABSCESS W/O BLEEDING SNOMED Code(s): 367451818 (2) Intra-abdominal abscess Current Visit: Yes Status: Acute Code(s): K65.1 - PERITONEAL ABSCESS SNOMED Code(s): 24860792 (3) Kidney transplant recipient Current Visit: Yes Status: Acute Code(s): Z94.0 - KIDNEY TRANSPLANT STATUS SNOMED Code(s): 146437463 Plan: 1patient with admission to the hospital with sepsis in this patient who did have a fever elevated white count source was acute uncomplicated diverticulitis in this patient so seem to have shown failure of medical therapy as tolerated to have worsening of diverticulitis with evidence of perforation and abscess likely failing Unasyn therapy 2-patient with a history of renal transplant on immunosuppressive medication 3-IR mention unable to drain this abscess CT-guided 4-patient to continue with Zosyn 3.375 g every 8 hours started yesterday he will likely need a 2-week course of IV antibiotic patient did have multiple questions concern dose has been answered and also discussed with the medical team working on discharge Dictation was produced using [employer] dictation software. please excuse any grammatical, word or spelling errors. Time with Patient: Less than 30
--- NOTE | 2023-11-04 16:04 | P.PN ---
Subjective Progress Note Date: 11/04/23 53-year-old male, history of hypertension, hyperlipidemia, hypothyroidism, diabetes mellitus, presents to the ER for evaluation abdominal pain severe abdominal pain left-sided abdominal pain. Patient has persistent nausea without vomiting since significant nausea without vomiting with history of dive rticulitis and this feels similar. He reports he was first diagnosed with diverticulitis in 1995. But since then he had a break in how often he was having diverticulitis. But recently it has been almost every 6 months that he has a flareup and requires antibiotics. This is his third flareup since April. This is his first hospitalization for diverticulitis. Last colonoscopy was a year ago and he reports that reported extensive diverticulosis. Patient does have a history of kidney transplant and bilateral nephrectomy for polycystic kidney disease. Patient reports that yesterday after lunch he had severe left lower quadrant abdominal pain. Blood work completed in ED reveals a WBC of 15.1, hemoglobin of 13.2 and platelet count of 172, sodium 138, potassium 3.9, BUN/creatinine of 30/1.63 and blood glucose of 150, lactic acid of 1.2 CT of the abdomen and pelvis is positive for significant severe diverticulitis 10/31/2023 Patient is seen and evaluated in room at bedside; family members are present in the room; continues to report significant pain on left upper and lower quadrant Vital signs reviewed reveal temperature of 98.3, pulse 69, respirate 17 and blood pressure 115/67 Lab review shows sodium of 141, potassium 3.7, BUNs/creatinine of 19/1.6; CBC is pending Patient is currently on a clear liquid diet; continue IV antibiotics in form of IV Unasyn Surgery on board and recommending to continue current management at this time 11/01/2023 Patient is seen in follow-up today being followed by general surgery maintained on antibiotics for diverticulitis. Patient is continued on IV Unasyn along with IV hydration currently maintained on clear liquids. Patient is afebrile and white count has normalized and patient is requesting when he can go home. Patient continues to report pain and is continued on IV pain medications. No reports of chest pain or shortness of breath and patient has been encouraged to increase activity as tolerated. Potassium is 3.3 and will replace per protocol and follow-up on repeat labs. Calcium on the lower side as well and will give a dose of calcium. Patient does take calcium outpatient chronically and patient remains on antirejection meds as patient has a solitary right kidney. Patient reports he has had multiple episodes of acute diverticulitis outpatient which has been treated with family practice provider. Patient has never been hospitalized for this. Given patient's continued pain, surgery has ordered a repeat CT abdomen for evaluation. Encouraged to increase activity as tolerated and frequent walking around the halls. All medications reviewed and resumed as appropriate 11/02/2023 Patient seen and evaluated in follow-up continues on antibiotics with general surgery following. Patient underwent repeat CT abdomen showing sigmoid/descending colitis diverticulitis with a possible organizing fluid collection adjacent to the sigmoid colon. Interventional radiology has been consulted for evaluation of possible abscess drainage or drainage tube placement. Patient is a transplant patient and in the event patient would need surgery patient prefers to go to [facility] where his transplant team is for further evaluation. Patient's potassium was replaced and improved at 3.6 and will dose per protocol. Magnesium noted to be low at 1.4 and will as well. Patient is continued on clear liquids and general surgery considering advancing. Patient encouraged to increase activity as tolerated taking with frequent walking in the halls. 11/03/2023 Patient is seen in follow-up today being continued on antibiotics with general surgery following. Interventional radiology was consulted with request for possible drainage or drainage tube with noted fluid collection on the CT. After review with Dr. Ivan there is no wall or fluid collection at this time to obtain aspiration or drainage tube placement. Infectious disease was consulted and recommending interventional radiology aspiration as well to determine appropriate discharge antibiotics and relief as patient is continued to be with symptomatic pain. Patient with potassium and magnesium low supplementing and was given a dose of calcium as well for low calcium. Patient has been up and walking reporting continued pain has been increased and diet per surgery to full liquids and tolerating. Patient reports to having bowel movements and urinating with no difficulties. Patient will likely need IV antibiotics on discharge given the extent of the diverticulitis and will discuss with social work regarding verification of coverage. Patient is afebrile with no white count denies chest pain or shortness of breath. Patient is extremely anxious and wanting to go home. Will discuss with other consultations regarding treatment plan moving forward. 11/04/2023 Patient is seen and evaluated in follow-up today being followed by infectious disease along with general surgery. Plan is for patient to receive a PICC line and will continue on IV antibiotics in the outpatient setting for minimal 2 weeks. Patient is afebrile although continues to report tenderness on the left side of the abdomen. Patient is maintained on full liquid and recommend to continue with this diet and extremely low fiber. Encouraged to continue walking and pain management as needed. Will plan for outpatient antibiotic therapy as well as home care in the outpatient setting. Patient has been encouraged to follow-up with primary care provider on discharge. Review of systems: Constitutional: No reports of fatigue, fever, or chills Cardiovascular: No reports of chest pain or palpitations Respiratory: No reports of shortness of breath or cough GI: No reports of nausea, vomiting, or diarrhea, reports continued abdominal pain : No reports of dysuria or retention Neurovascular: No reports of weakness or numbness All medications have been reviewed Physical exam: Gen: This is a 53-year-old male who is awake, alert and oriented x 3, well-devel oped, well-nourished HEENT: Head is atraumatic, normocephalic. Pupils equal, round. Sclerae is anict vitor. NECK: Supple. No JVD. No lymphadenopathy. No thyromegaly. LUNGS: Clear to auscultation. No wheezes or rhonchi. No intercostal retractions. HEART: Regular rate and rhythm. No murmur. ABDOMEN: Soft. Tender on palpation. Bowel sounds are present. No masses. EXTREMITIES: No pedal edema. No calf tenderness. NEUROLOGICAL: Patient is awake, alert and oriented x3. Cranial nerves 2 through 12 are grossly intact. Assessment: -Severe acute sigmoid diverticulitis with fluid collection noted on CT with no obvious abscess formed -Hypomagnesemia; being replaced -Hypertension; currently not on any antihypertensive therapy -Hyperlipidemia -Hypothyroidism -History of renal transplant; has a solitary right kidney, continues on antirejection medications. Follows with the transplant team out of [facility] -GI prophylaxis -DVT prophylaxis; SCDs/subcu heparin -full code Plan: Patient is currently continued on gentle IV hydration along with antibiotics in the form of Unasyn with general surgery following. Infectious disease was consulted and IV antibiotics changed to Zosyn and will continue. Patient has been continued on full liquids and tolerating thus far. Patient continues with abdominal pain on the left and reports is about the same. Repeat CT abdomen as mentioned above with concerns of possible fluid collection. Interventional radiology was consulted and reported there is not a fluid collection containing bautista where a drain could be placed. Discussed again with interventional radiology about possible aspiration for symptomatic relief as well as culture analysis and per Dr. Ivan there is no collection to aspirate and does not recommend doing this at this time. Also reported if there becomes an abscess or wall formation then we will proceed with aspiration. If the patient is requiring surgery, patient and family would like to go where his transplant team is at [facility] Social work consulted as patient will likely require IV antibiotic therapy and infectious disease was consulted and appreciate input and recommendations. ID is following and has transitioned antibiotics and will plan for PICC line to be placed with continued IV antibiotics outpatient. Due to no [facility] staff and availability, PICC line will be placed by Dr. Smith tentatively on 11/05/2023. Social work following and has made arrangements for home care in the outpatient setting as well as IV antibiotic therapy. Encouraged continued increased activity as tolerated and frequent walking around the halls Will follow-up on repeat labs and replace electrolytes per protocol Prognosis is guarded Plan for discharge in the next 24 hours The impression and plan of care has been dictated by Perla Santos, Nurse Practitioner as directed. Dr. Ruben MD I have performed a history and examination and MDM of this patient, discussed the same with the dictator, and agree with the dictator's assessment and plan as written ,documented as a scribe. Based on total visit time, I have performed more than 50% of the visit. Objective - Vital Signs Vital signs: Vital Signs Temp 98.3 F 11/04/23 08:01 Pulse 67 11/04/23 08:01 Resp 16 11/04/23 08:01 BP 118/71 11/04/23 08:01 Pulse Ox 99 11/04/23 08:01 FiO2 Intake & Output 11/03/23 11/04/23 11/04/23 18:59 06:59 18:59 Intake Total 800 Balance 800 Intake: Intake, IV Titration 800 Amount Ampicillin-Sulbactam 3 gm 100 In Sodium Chloride 0.9% 100 ml @ 200 mls/hr IVPB Q8H JEY Rx#:[id number] Lactated Ringers 1,000 ml 600 @ 75 mls/hr IV .[id number] JEY Rx#:[id number] Piperacillin-Tazobactam 3 100 .375 gm In Sodium Chloride 0.9% 100 ml @ 25 mls/hr IVPB Q8HR JEY Rx# :[id number] Other: Voiding Method Toilet Toilet # Voids 4 - Labs CBC & Chem 7: 11/04/23 06:02 11/04/23 06:02 Labs: Abnormal Lab Results - Last 24 Hours (Table) 11/03/23 11/03/23 11/04/23 Range/Units 07:17 07:17 06:02 RBC 4.34 L (4.40-5.60) X 10*6/uL Hgb 12.9 L 12.4 L (13.0-17.0) g/dL Hct 38.6 L (39.6-50.0) % Lymphocytes # 0.83 L (0.90-5.00) X 10*3/uL Chloride (96-109) mmol/L Carbon Dioxide 21.4 L (21.6-31.8) mmol/L Anion Gap 14.60 H (4.00-12.00) mmol/L Creatinine (0.6-1.5) mg/dL Est GFR (CKD-EPI) 56 L (>=60) BUN/Creatinine Ratio 9.13 L (12.00-20.00) Ratio Calcium 7.2 L (8.7-10.3) mg/dL Total Protein 5.9 L (6.2-8.2) g/dL 11/04/23 Range/Units 06:02 RBC (4.40-5.60) X 10*6/uL Hgb (13.0-17.0) g/dL Hct (39.6-50.0) % Lymphocytes # (0.90-5.00) X 10*3/uL Chloride 110 H (96-109) mmol/L Carbon Dioxide 20.9 L (21.6-31.8) mmol/L Anion Gap 13.10 H (4.00-12.00) mmol/L Creatinine 1.7 H (0.6-1.5) mg/dL Est GFR (CKD-EPI) 48 L (>=60) BUN/Creatinine Ratio 8.94 L (12.00-20.00) Ratio Calcium 7.3 L (8.7-10.3) mg/dL Total Protein (6.2-8.2) g/dL
[2023-11-05 08:56] VITALS: RESP 18; BMI 28.2
--- NOTE | 2023-11-05 09:04 | P.DS ---
Providers Date of admission: 10/29/23 03:53 Expected date of discharge: 11/05/23 Attending physician: Mk Lofton Consults: 10/29/23 08:02 Consult Physician Routine Consulting Provider: Dennis Roman Consult Reason/Comments: diverticulitis Do you want consulting provider notified?: Yes 11/03/23 09:05 Consult Physician Routine Consulting Provider: Una Carbone Consult Reason/Comments: diverticulitis Do you want consulting provider notified?: Yes Primary care physician: Gigi Aguirre [facility] Course: This a 53-year-old male who was noted hospital with complicated diverticulitis. Patient improved with bowel rest and IV antibiotics. Patient was eventually discharged home with a PICC line for home IV infusion therapy. Patient Condition at Discharge: Good Plan - Discharge Summary Discharge Rx Participant: Yes New Discharge Prescriptions: New Ibuprofen [Motrin] 600 mg PO Q6HR PRN #40 tab PRN Reason: Pain oxyCODONE HCL [OxyIR] 5 mg PO Q6H PRN 3 Days #10 tab PRN Reason: Pain Acetaminophen Tab [Tylenol] 650 mg PO Q6H #30 tab No Action Calcium Carbonate [Tums] 2,000 mg PO QAM Hydrocortisone [Cortef] 10 mg PO BID Calcium Acetate [Phoslo] 1,334 mg PO TID-W/MEALS Multivitamins, Thera [Multivitamin (formulary)] 1 tab PO QAM Levothyroxine Sodium [Synthroid] 75 mcg PO QAM Tacrolimus [Prograf] 3 mg PO Q12H acetaZOLAMIDE [Diamox] 500 mg PO BID Ada-3 Fatty Acids/Fish Oil [Fish Oil 1,000 mg Softgel] 1 cap PO BID mycophenolate mofetiL [Cellcept] 750 mg PO BID minoxidiL [Rogaine] 1 applic TOPICAL BID Loratadine [Claritin] 10 mg PO DAILY Loperamide HCl [Imodium A-D] 2 mg PO DAILY Azelastine HCl [Astepro] 2 spray NASAL DAILY allopurinoL [Zyloprim] 200 mg PO DAILY Vitamin E (Dl,Tocopheryl Acet) [Vitamin E (400 Iu = 180 mg)] 400 unit PO QAM Magnesium Oxide [Mag-Ox] 400 mg PO QAM Atorvastatin [Lipitor] 40 mg PO HS Folic Acid 0.4 mg PO BID Montelukast Sodium [Singulair] 10 mg PO DAILY Famotidine [Pepcid] 20 mg PO HS calcitrioL 0.25 mcg PO BID Hyoscyamine Sulfate [Levsin] 0.125 mg PO TID-W/MEALS Fluticasone Propionate [Flonase Allergy Relief] 2 spray EA NOSTRIL DAILY Midodrine [ProAmatine] 10 mg PO TID Sertraline [Zoloft] 150 mg PO HS Discharge Medication List Atorvastatin [Lipitor] 40 mg PO HS 11/26/21 [History] Azelastine HCl [Astepro] 2 spray NASAL DAILY 11/26/21 [History] Calcium Acetate [Phoslo] 1,334 mg PO TID-W/MEALS 11/26/21 [History] Calcium Carbonate [Tums] 2,000 mg PO QAM 11/26/21 [History] Famotidine [Pepcid] 20 mg PO HS 11/26/21 [History] Fluticasone Propionate [Flonase Allergy Relief] 2 spray EA NOSTRIL DAILY 11/26/21 [History] Folic Acid 0.4 mg PO BID 11/26/21 [History] Hydrocortisone [Cortef] 10 mg PO BID 11/26/21 [History] Hyoscyamine Sulfate [Levsin] 0.125 mg PO TID-W/MEALS 11/26/21 [History] Levothyroxine Sodium [Synthroid] 75 mcg PO QAM 11/26/21 [History] Loperamide HCl [Imodium A-D] 2 mg PO DAILY 11/26/21 [History] Loratadine [Claritin] 10 mg PO DAILY 11/26/21 [History] Magnesium Oxide [Mag-Ox] 400 mg PO QAM 11/26/21 [History] Montelukast Sodium [Singulair] 10 mg PO DAILY 11/26/21 [History] Multivitamins, Thera [Multivitamin (formulary)] 1 tab PO QAM 11/26/21 [History] Ada-3 Fatty Acids/Fish Oil [Fish Oil 1,000 mg Softgel] 1 cap PO BID 11/26/21 [History] Tacrolimus [Prograf] 3 mg PO Q12H 11/26/21 [History] Vitamin E (Dl,Tocopheryl Acet) [Vitamin E (400 Iu = 180 mg)] 400 unit PO QAM 11/26/21 [History] acetaZOLAMIDE [Diamox] 500 mg PO BID 11/26/21 [History] allopurinoL [Zyloprim] 200 mg PO DAILY 11/26/21 [History] calcitrioL 0.25 mcg PO BID 11/26/21 [History] minoxidiL [Rogaine] 1 applic TOPICAL BID 11/26/21 [History] mycophenolate mofetiL [Cellcept] 750 mg PO BID 11/26/21 [History] Midodrine [ProAmatine] 10 mg PO TID 10/29/23 [History] Sertraline [Zoloft] 150 mg PO HS 10/29/23 [History] Acetaminophen Tab [Tylenol] 650 mg PO Q6H #30 tab 11/05/23 [Rx] Ibuprofen [Motrin] 600 mg PO Q6HR PRN #40 tab 11/05/23 [Rx] oxyCODONE HCL [OxyIR] 5 mg PO Q6H PRN 3 Days #10 tab 11/05/23 [Rx] Follow up Appointment(s)/Referral(s): Gigi Aguirre MD [Primary Care Provider] - 1-2 days [facility] [NON-STAFF] - 11/05/23 5:00 pm [facility] Visiting Nurse, [NON-STAFF] - 11/06/23 9:00 am Dennis Roman MD [STAFF PHYSICIAN] - 1 Week Discharge Disposition: HOME SELF-CARE
--- NOTE | 2023-11-05 09:22 | P.PCN ---
Date of Procedure: 11/05/23 Preoperative Diagnosis: Diverticulitis, need for long-term IV antibiotics Postoperative Diagnosis: Same Procedure(s) Performed: Left upper extremity basilic vein PICC line placement under ultrasound and fluoroscopic guidance Anesthesia: local Surgeon: Kurtis Smith Estimated Blood Loss (ml): 2 Pathology: none sent Condition: stable Disposition: floor Indications for Procedure: 53-year-old gentleman with history of diverticulitis in need of IV antibiotics for an extended period time presents to to the [facility] for placement of PICC line Description of Procedure: After written and informed consent was obtained the patient and all risks, benefits and competitions were described the patient was brought to the [facility] and laid in a supine position with his left arm outstretched on an armboard. The area of the left arm was prepped and draped in usual sterile fashion. Timeout was performed in normal fashion. Utilizing ultrasound the basilic vein was visualized and shown to be compressible without any visible thrombus. Under ultrasound guidance the basilic vein was then cannulated with a micropuncture needle and wire was placed under direct visualization of fluoroscopy. Introducer sheath was then placed. The catheter was measured and cut to the appropriate length which was 53 cm. The catheter was then guided through the breakaway sheath and the sheath was removed with good positioning was visualized under fluoroscopy. The catheter was pulled and flushed easily. It was then secured in place in normal fashion. Patient tolerated the procedure well was sent back to his room for recovery.
--- NOTE | 2023-11-05 10:02 | IR ---
EXAMINATION TYPE: IR cvc insert >=5 years DATE OF EXAM: 11/05/2023 COMPARISON: NONE HISTORY: Fluoroscopy time. Fluoroscopy was provided to the referring clinician.
[2023-11-05 13:43] VITALS: BP 114/73; PULSE 67; TEMP 97.4
[2023-11-05] MEDS: ERTAPENEM 1 GM in SODIUM CHLORIDE 0.9% 50 ML IVPB SCH (13:49)
--- NOTE | 2023-11-05 15:48 | P.PN ---
Subjective Progress Note Date: 11/05/23 Principal diagnosis: Reason for follow-up is complicated diverticulitis with abscess Patient is a 53-year-old male with a past medical history significant for diabetes mellitus hypertension hyperlipidemia osteoarthritis patient did have a history of living related kidney transplant in 2016 and the patient is currently on immunosuppressive medication, patient now has been on dialysis and never have a permacatheter or fistula placement presented to hospital abdominal pain has been diagnosed with diverticulitis with a repeat CAT scan now showing evidence of perforation and peridiverticular abscess which cannot be drained CT- guided. On today's visit that is 11/05/2023, the patient continues to be afebrile, the patient is on room air and breathing comfortably, the Pt denies having any chest pain or cough, the patient denies having any abdominal pain no vomiting or any diarrhea. Feeling better wants to go home patient did have a magnesium of 1.7 no other labs done Objective - Vital Signs Vital signs: Vital Signs Temp 97.6 F 11/05/23 08:17 Pulse 63 11/05/23 08:17 Resp 18 11/05/23 08:17 BP 115/74 11/05/23 08:17 Pulse Ox 100 11/05/23 08:17 FiO2 Intake & Output 11/04/23 11/05/23 11/05/23 18:59 06:59 18:59 Intake Total 2200 590 Balance 2200 590 Weight 99.79 kg Intake: Intake, IV Titration 2200 Amount Magnesium Sulfate-D5w Pmx 2000 1 gm In Dextrose/Water 1 100ml.bag @ 100 mls/hr IVPB Q1H [facility] Rx#: [id number] Piperacillin-Tazobactam 3 200 .375 gm In Sodium Chloride 0.9% 100 ml @ 25 mls/hr IVPB Q8HR JEY Rx# :[id number] Oral 590 Other: Voiding Method Toilet Toilet # Voids 2 - Exam GENERAL DESCRIPTION: Middle-age male lying in bed in no distress RESPIRATORY SYSTEM: Unlabored breathing , decreased breath sounds at bases HEART: S1 S2 regular rate and rhythm , ABDOMEN: Soft , left-sided tenderness EXTREMITIES: No edema feet - Labs CBC & Chem 7: 11/04/23 06:02 11/04/23 06:02 Labs: Abnormal Lab Results - Last 24 Hours (Table) 03/21/24 Range/Units 06:02 Hemoglobin A1c 6.1 H (<=6.0) % Assessment and Plan (1) Diverticulitis of large intestine with complication Status: Acute Code(s): K57.32 - DVTRCLI OF LG INT W/O PERFORATION OR ABSCESS W/O BLEEDING SNOMED Code(s): 903675883 (2) Intra-abdominal abscess Status: Acute Code(s): K65.1 - PERITONEAL ABSCESS SNOMED Code(s): 79456367 (3) Kidney transplant recipient Status: Acute Code(s): Z94.0 - KIDNEY TRANSPLANT STATUS SNOMED Code(s): 632672132 Plan: 1patient with admission to the hospital with sepsis in this patient who did have a fever elevated white count source was acute uncomplicated diverticulitis in this patient so seem to have shown failure of medical therapy as tolerated to have worsening of diverticulitis with evidence of perforation and abscess likely failing Unasyn therapy 2-patient with a history of renal transplant on immunosuppressive medication 3-IR mention unable to drain this abscess CT-guided 4-patient to continue with Zosyn 3.375 g every 8 hours, PICC line has been placed as patient insisting on going home now we will give one-time dose of Invanz before discharge discussed with the GLOBAL POSITION SYSTEM TECHNICIAN for admitting team patient will need CT abdominal pelvis before completion of his 2 weeks of antibiotics to make sure resolution of the abscess before discontinuation of antibiotics multiple question Answered Dictation was produced using [employer] dictation software. please excuse any grammatical, word or spelling errors. Time with Patient: Less than 30
--- NOTE | 2023-11-06 11:51 | P.DS ---
Providers Date of admission: 10/29/23 03:53 Expected date of discharge: 11/05/23 Attending physician: Mk Lofton Consults: 10/29/23 08:02 Consult Physician Routine Consulting Provider: Dennis Roman Consult Reason/Comments: diverticulitis Do you want consulting provider notified?: Yes 11/03/23 09:05 Consult Physician Routine Consulting Provider: Una Carbone Consult Reason/Comments: diverticulitis Do you want consulting provider notified?: Yes Primary care physician: Gigi Aguirre Hospital Course: Final diagnosis -Severe acute sigmoid diverticulitis with fluid collection noted on CT with no obvious abscess formed -Hypomagnesemia; being replaced -Hypertension; currently not on any antihypertensive therapy -Hyperlipidemia -Hypothyroidism -History of renal transplant; has a solitary right kidney, continues on antirejection medications. Follows with the transplant team out of [facility] -GI prophylaxis -DVT prophylaxis -full code Discharge disposition Patient is being discharged in a stable condition with guarded prognosis to home with home care. Patient will follow-up with Dr. Rios in the outpatient setting upon discharge. Patient is to continue with IV antibiotics and close outpatient follow-up with surgery as well as infectious disease as scheduled. Patient has also been instructed to follow-up with transplant bisi lauren out of [facility] on discharge. Total time taken is greater than 35 minutes. Hospital course This is a 53-year-old male who was recently admitted with abdominal pain found to have severe acute sigmoid diverticulitis maintained on antibiotics with general surgery following. Patient also being followed by infectious disease team and will continue with a PICC line on discharge with IV Zosyn. Patient was evaluated by interventional radiology and requested possible drainage tube or aspiration although per Dr. Ivan there is no abscess formation or wall with obvious fluid collection and recommend to continue with antibiotics and follow- up with repeat imaging in the next few weeks. Patient is a kidney transplant patient follows Dr. eMna outpatient at [facility] and has been instructed to follow-up with him this week. Home care being arranged and patient has been cleared by consultations. Patient anxious to return home. Patient has been instructed to continue with low fiber diet on discharge until follow-up with general surgery evaluation. currently no reports of chest pain, shortness of breath, or palpitations. Patient is afebrile. No reports of n ausea or vomiting and patient is tolerating diet. Patient will be discharged home today. Guarded prognosis and risk for readmission due to extent of diverticulitis. If patient is requiring surgery, Patient prefers to follow-up with transplant team at [facility]. Physical exam: Gen: This is a 53-year-old male who is awake, alert and oriented x 3, well- developed, well-nourished HEENT: Head is atraumatic, normocephalic. Pupils equal, round. Sclerae is anicteric. NECK: Supple. No JVD. No lymphadenopathy. No thyromegaly. LUNGS: Clear to auscultation. No wheezes or rhonchi. No intercostal retractions. HEART: Regular rate and rhythm. No murmur. ABDOMEN: Soft. Left upper and lower quadrant pain noted on palpation. Bowel sounds are present. No masses. EXTREMITIES: No pedal edema. No calf tenderness. NEUROLOGICAL: Patient is awake, alert and oriented x3. Cranial nerves 2 through 12 are grossly intact. Please refer to medication reconciliation sheet for a list of medications. The impression and plan of care has been dictated by Perla Santos, Nurse Practitioner as directed. Dr. Ruben MD I have performed a history and examination and MDM of this patient, discussed the same with the dictator, and agree with the dictator's assessment and plan as written ,documented as a scribe. Based on total visit time, I have performed more than 50% of the visit. Patient Condition at Discharge: Good Plan - Discharge Summary Discharge Rx Participant: Yes New Discharge Prescriptions: New Ibuprofen [Motrin] 600 mg PO Q6HR PRN #40 tab PRN Reason: Pain oxyCODONE HCL [OxyIR] 5 mg PO Q6H PRN 3 Days #10 tab PRN Reason: Pain Acetaminophen Tab [Tylenol] 650 mg PO Q6H #30 tab HYDROcodone/APAP 5-325MG [Banner 5-325] 1 tab PO Q6HR PRN 3 Days #9 tab PRN Reason: Pain Continue Calcium Carbonate [Tums] 2,000 mg PO QAM Hydrocortisone [Cortef] 10 mg PO BID Calcium Acetate [PhosLo] 1,334 mg PO TID-W/MEALS Multivitamins, Thera [Multivitamin (formulary)] 1 tab PO QAM Levothyroxine Sodium [Synthroid] 75 mcg PO QAM Tacrolimus [Prograf] 3 mg PO Q12H acetaZOLAMIDE [Diamox] 500 mg PO BID [place]-3 Fatty Acids/Fish Oil [Fish Oil 1,000 mg Softgel] 1 cap PO BID mycophenolate mofetiL [Cellcept] 750 mg PO BID minoxidiL [Rogaine] 1 applic TOPICAL BID Loratadine [Claritin] 10 mg PO DAILY Loperamide HCl [Imodium A-D] 2 mg PO DAILY Azelastine HCl [Astepro] 2 spray NASAL DAILY allopurinoL [Zyloprim] 200 mg PO DAILY Vitamin E (Dl,Tocopheryl Acet) [Vitamin E (400 Iu = 180 mg)] 400 unit PO QAM Magnesium Oxide [Mag-Ox] 400 mg PO QAM Atorvastatin [Lipitor] 40 mg PO HS Folic Acid 0.4 mg PO BID Famotidine [Pepcid] 20 mg PO HS calcitrioL 0.25 mcg PO BID Hyoscyamine Sulfate [Levsin] 0.125 mg PO TID-W/MEALS Fluticasone Propionate [Flonase Allergy Relief] 2 spray EA NOSTRIL DAILY Midodrine [ProAmatine] 10 mg PO TID Sertraline [Zoloft] 150 mg PO HS Discontinued Montelukast Sodium [Singulair] 10 mg PO DAILY No Action Fludrocortisone [Florinef] 0.1 mg PO DAILY Discharge Medication List Atorvastatin [Lipitor] 40 mg PO HS 11/26/21 [History] Azelastine HCl [Astepro] 2 spray NASAL DAILY 11/26/21 [History] Calcium Acetate [PhosLo] 1,334 mg PO TID-W/MEALS 11/26/21 [History] Calcium Carbonate [Tums] 2,000 mg PO QAM 11/26/21 [History] Famotidine [Pepcid] 20 mg PO HS 11/26/21 [History] Fluticasone Propionate [Flonase Allergy Relief] 2 spray EA NOSTRIL DAILY 11/26/21 [History] Folic Acid 0.4 mg PO BID 11/26/21 [History] Hydrocortisone [Cortef] 10 mg PO BID 11/26/21 [History] Hyoscyamine Sulfate [Levsin] 0.125 mg PO TID-W/MEALS 11/26/21 [History] Levothyroxine Sodium [Synthroid] 75 mcg PO QAM 11/26/21 [History] Loperamide HCl [Imodium A-D] 2 mg PO DAILY 11/26/21 [History] Loratadine [Claritin] 10 mg PO DAILY 11/26/21 [History] Magnesium Oxide [Mag-Ox] 400 mg PO QAM 11/26/21 [History] Multivitamins, Thera [Multivitamin (formulary)] 1 tab PO QAM 11/26/21 [History] [place]-3 Fatty Acids/Fish Oil [Fish Oil 1,000 mg Softgel] 1 cap PO BID 11/26/21 [History] Tacrolimus [Prograf] 3 mg PO Q12H 11/26/21 [History] Vitamin E (Dl,Tocopheryl Acet) [Vitamin E (400 Iu = 180 mg)] 400 unit PO QAM 11/26/21 [History] acetaZOLAMIDE [Diamox] 500 mg PO BID 11/26/21 [History] allopurinoL [Zyloprim] 200 mg PO DAILY 11/26/21 [History] calcitrioL 0.25 mcg PO BID 11/26/21 [History] minoxidiL [Rogaine] 1 applic TOPICAL BID 11/26/21 [History] mycophenolate mofetiL [Cellcept] 750 mg PO BID 11/26/21 [History] Midodrine [ProAmatine] 10 mg PO TID 10/29/23 [History] Sertraline [Zoloft] 150 mg PO HS 10/29/23 [History] Acetaminophen Tab [Tylenol] 650 mg PO Q6H #30 tab 11/05/23 [Rx] Fludrocortisone [Florinef] 0.1 mg PO DAILY 11/05/23 [History] HYDROcodone/APAP 5-325MG [Banner 5-325] 1 tab PO Q6HR PRN 3 Days #9 tab 11/05/23 [Rx] Ibuprofen [Motrin] 600 mg PO Q6HR PRN #40 tab 11/05/23 [Rx] oxyCODONE HCL [OxyIR] 5 mg PO Q6H PRN 3 Days #10 tab 11/05/23 [Rx] Follow up Appointment(s)/Referral(s): Gigi Aguirre MD [Primary Care Provider] - 11/09/23 10:30 am [facility] [NON-STAFF] - 11/05/23 5:00 pm Una Carbone MD [STAFF PHYSICIAN] - 1 Week [facility] Visiting Nurse, [NON-STAFF] - 11/06/23 9:00 am Dennis Roman MD [STAFF PHYSICIAN] - 11/16/23 1:50 pm Ambulatory/Diagnostic Orders: Comprehensive Metabolic Panel [LAB.AMB] Time Frame: 3 Days, Location: None Selected Patient Instructions/Handouts: Diverticulitis (DC), Diverticulosis (DC), How to Care for Your PICC (Peripherally Inserted Central Catheter) (DC) Activity/Diet/Wound Care/Special Instructions: Activity is limited until follow-up Follow-up with primary care provider on discharge Follow-up with general surgery outpatient Follow-up with your transplant team specialist Continue with antibiotics per ID recommendations and close outpatient follow-up with Dr. Carbone Continue soft low fiber diet Repeat labs to monitor kidney functions and electrolytes Discharge Disposition: HOME WITH HOME HEALTH SERVICES
== END 2023-11-05 14:45 | disposition home health service (06) | DRG 391 ==
LOC: EC 00:32 → 5NMEDONC 03:53
PROVIDERS: ADMIT Hospitalist; ATTEND Hospitalist
PROC: B548ZZA Ultrasonography of Superior Vena Cava, Guidance (ICD-10-PCS; 2023-11-05)
PROC: B5181ZA Fluoroscopy of Superior Vena Cava using Low Osmolar Contrast, Guidance (ICD-10-PCS; 2023-11-05)
PROC: 05HC33Z Insertion of Infusion Device into Left Basilic Vein, Percutaneous Approach (ICD-10-PCS; 2023-11-05)
PROC: 02HV33Z Insertion of Infusion Device into Superior Vena Cava, Percutaneous Approach (ICD-10-PCS; principal; 2023-11-05 07:30)
DX: K57.20 Diverticulitis of large intestine with perforation and abscess without bleeding (principal); K65.1 Peritoneal abscess; Z94.0 Kidney transplant status; Q61.3 Polycystic kidney, unspecified; D84.821 Immunodeficiency due to drugs; Z90.5 Acquired absence of kidney; E83.42 Hypomagnesemia; I95.9 Hypotension, unspecified; I10 Essential (primary) hypertension; K59.00 Constipation, unspecified; E78.5 Hyperlipidemia, unspecified; E11.9 Type 2 diabetes mellitus without complications; G47.30 Sleep apnea, unspecified; T45.1X5A Adverse effect of antineoplastic and immunosuppressive drugs, initial encounter; M19.90 Unspecified osteoarthritis, unspecified site; I20.9 Angina pectoris, unspecified; X58.XXXA Exposure to other specified factors, initial encounter; E03.9 Hypothyroidism, unspecified; E87.6 Hypokalemia; F41.9 Anxiety disorder, unspecified; Z79.52 Long term (current) use of systemic steroids; Z79.624 Long term (current) use of inhibitors of nucleotide synthesis; Z79.890 Hormone replacement therapy; Z79.899 Other long term (current) drug therapy; Z99.2 Dependence on renal dialysis; Z88.1 Allergy status to other antibiotic agents; Z98.42 Cataract extraction status, left eye; Z98.41 Cataract extraction status, right eye
CPT/HCPCS: 36415; 36573; 74176; 80048; 80053; 82150; 83036; 83605; 83690; 83735; 84100; 85025; 85610; 96361; 96365; 96367; 96375; 96376; 99285

== ENCOUNTER → 2023-11-17 | Outpatient (CLI) | payer BC ==
--- NOTE | 2023-11-18 00:24 | CT ---
EXAMINATION TYPE: CT abdomen wo con CT DLP: 697.2 mGycm, Automated exposure control for dose reduction was used. DATE OF EXAM: 11/17/2023 6:13 PM COMPARISON: CT abdomen and pelvis 11/01/2023 CLINICAL INDICATION:Male, 53 years old with history of R10.9 UNSPECIFIED ABDOMINAL PAIN; history of d iverticulitis TECHNIQUE: CT abdomen performed without IV contrast, oral contrast only. Multiplanar reformats. Contrast used: mL of , (none if empty) Oral contrast used: with Oral Contrast (none if empty) FINDINGS: LOWER CHEST: Lung bases are clear. Heart size is towards upper normal. Partially seen radiodense focu s in the region of the tricuspid valve. Trace pericardial fluid. Small hiatal hernia. ABDOMEN LIVER: Stable unenhanced appearance. Several tiny hypodense foci are present, not well assessed but s eem grossly stable; contrast study or MRI could further evaluate if clinically warranted. GALLBLADDER AND BILE DUCTS: Contracted gallbladder. PANCREAS: Fatty infiltrated without acute finding SPLEEN: Unremarkable. ADRENAL GLANDS: Stable and unremarkable.. KIDNEYS AND URETERS: Left kidney again not seen, reportedly surgically absent. The right kidney is on ly partially imaged but appears grossly unchanged, located towards the pelvis likely representing marshall al transplant. Visualized portion shows no evidence of calculus or hydronephrosis. There is otherwise no [place] right kidney visualized. Other structures are only partially visualized on this abdomen-only study.. STOMACH AND BOWEL: Contrast traverses the stomach and small bowel loops without evidence of obstruction. There is questi on of wall thickening versus underdistention in the proximal stomach. Also some segments of small bow el are not distended or opacified, and mild mucosal thickening cannot be excluded. There is a small d uodenal diverticulum. Additionally there are numerous other rounded partially contrast filled structu res along the small bowel which appear to represent small bowel diverticula. The largest is 4.1 cm in the left mid abdomen. No acute findings associated with these. Contrast is not yet into the colon. There is fatty infiltration of the ileocecal valve. The appendix appears normal. Continuing distally a portion of the distal ascending and proximal transverse colon a re interposed between the liver and body wall, the so-called [place] sign. Numerous more distal colonic diverticula are redemonstrated, with no new areas of diverticulitis seen in the abdomen. In the area of previous diverticulitis and organizing fluid collection involving the descending colon /proximal sigmoid, the extracolonic organizing fluid collection has decreased, essentially resolved, with a small relatively flat opacity seen in this area which may reflect scarring. There is decreased colonic wall thickening and pericolonic fat stranding as well. PERITONEUM/RETROPERITONEUM: No evidence of pneumoperitoneum or free fluid. VASCULATURE: Mild atherosclerotic calcifications are present throughout the abdominal aorta and its b ranches. No evidence of aortic aneurysm. MUSCULOSKELETAL: No acute osseous abnormalities. Degenerative changes of the lumbar spine with grade 1, approaching grade 2, anterolisthesis L4 on L5, and mild retrolisthesis L5 on S1 appear similar to prior. Moderate canal and foraminal stenoses at these levels. LYMPH NODES: No enlarged lymph nodes by CT criteria. SOFT TISSUE/ABDOMINAL WALL: Small fat-containing umbilical hernia. Partially imaged lipoma in the lef t gluteal region interposed between the gluteus minimus and medius. IMPRESSION: 1. Significant interval improvement, with nearly resolved inflammatory changes and organizing fluid collection in the left abdomen related to previously identified descending/sigmoid diverticulitis. 2. No new acute abnormality. 3. Multiple small bowel diverticula.
== END | disposition home or self-care (01) ==
LOC: RADCTMAIN 16:59
PROVIDERS: ATTEND Internal Medicine Infectious Disease
DX: K57.10 Diverticulosis of small intestine without perforation or abscess without bleeding (principal)
CPT/HCPCS: 74150